=== PATIENT | female | born 1995 | race Caucasian/White ===

== ENCOUNTER 2016-09-21 19:26 | Emergency (ER) | payer OTHER ==
[2016-09-21] MEDS ORDERED: SODIUM CHLORIDE 0.9% 500 ML IV STA (20:32)
--- NOTE | 2016-09-21 20:32 | ED ---
General Adult HPI - General Chief complaint: Abdominal Pain Stated complaint: Stomach Pain Time Seen by Provider: 09/21/16 20:02 Source: patient, RN notes reviewed Mode of arrival: ambulatory Limitations: no limitations - History of Present Illness Initial comments: This is a 21-year-old female presents with right-sided abdominal pain 1 hour. Patient's dates the pain is intermittent and sharp. Nothing makes the pain better or worse. Patient states she took an ibuprofen and this helped. Patient denies any lower abdominal pain, cramping, vaginal bleeding or vaginal discharge. Patient denies any constipation, diarrhea, vomiting or nausea. Patient states she had bowel movement yesterday and this was normal. Patient denies any hematochezia. Patient denies any frequency of urination or dysuria but states her urine has a foul odor. Patient denies any fever/chills, cough, congestion headache. Patient is unsure if she could be . Patient states she has irregular menstrual cycles. Patient has a history of cholecystectomy approximately one year ago. Patient has never had a pain like this before. Patient denies any recent shortness breath, chest pain, back pain , numbness, tingling, hematuria, or visual changes, or any other complaints. - Related Data Previous Rx's Medication Instructions Recorded Azithromycin [Zithromax Tri-Sameer] 500 mg PO DAILY #3 tab 04/09/16 Allergies Allergy/AdvReac Type Severity Reaction Status Date / Time No Known Allergies Allergy Verified 04/09/16 12:20 Review of Systems ROS Statement: Those systems with pertinent positive or pertinent negative responses have been documented in the HPI. ROS Other: All systems not noted in ROS Statement are negative. Past Medical History Past Medical History: GERD/Reflux Additional Past Medical History / Comment(s): HEART MURMUR CHILD. History of Any Multi-Drug Resistant Organisms: MRSA Date of last positivie culture/infection: 2008 MDRO Source:: axilla Past Surgical History: Cholecystectomy Past Anesthesia/Blood Transfusion Reactions: No Reported Reaction Past Psychological History: Bipolar Additional Psychological History / Comment(s): NO CURRENT PROB. Smoking Status: Never smoker Past Alcohol Use History: None Reported Past Drug Use History: None Reported - Past Family History Mother Family Medical History: No Reported History General Exam - General Exam Comments Initial Comments: General: The patient is awake and alert, in no distress, and does not appear acutely ill. Eye: Pupils are equal, round and reactive to light, extra-ocular movements are intact. No nystagmus. There is normal conjunctiva bilaterally. No signs of icterus. Ears: TMs pink and pearly with intact cone of light bilaterally. Normal external ear canals Nose: Nasal turbinates pink and moist Mouth and throat: There are moist mucous membranes and no oral lesions. Neck: The neck is supple, there is no tenderness or JVD. Cardiovascular: There is a regular rate and rhythm. No murmur, rub or gallop is appreciated. Respiratory: Lungs are clear to auscultation, respirations are non-labored, breath sounds are equal. No wheezes, stridor, rales, or rhonchi. Gastrointestinal: There is tenderness to palpation of the right upper quadrant. Soft, non-distended, abdomen without masses or organomegaly noted. There is no rebound or guarding present. No CVA tenderness. Bowel sounds are unremarkable. Musculoskeletal: Normal ROM, no tenderness. Strength 5/5. Sensation intact. Radial Pulses equal bilaterally 2+. Neurological: A&O x 3. CN II-XII intact, There are no obvious motor or sensory deficits. Coordination appears grossly intact. Speech is normal. Skin: Skin is warm and dry and no rashes or lesions are noted. Psychiatric: Cooperative, appropriate mood & affect, normal judgment. Limitations: no limitations Course Vital Signs 09/21/16 09/21/16 20:02 20:52 Temperature 98.0 F 97.7 F Pulse Rate 93 87 Respiratory 20 16 Rate Blood Pressure 140/79 126/63 O2 Sat by Pulse 97 100 Oximetry Medical Decision Making - Medical Decision Making Is a 21-year-old female presents abdominal pain 1 hour. On physical exam patient is afebrile in the EC. There is tenderness to palpation of the right upper quadrant. Soft, non-distended, abdomen without masses or organomegaly noted. There is no rebound or guarding present. No CVA tenderness. Bowel sounds are unremarkable. Patient has a history of cholecystectomy. A UA was done and is negative for UTI. Basic labs were drawn and reviewed and are within normal limits. Abdominal x-ray was done and reviewed showing: Overall nonobstructive bowel gas pattern. Gas and fecal material is seen and nondistended colon and rectum. Reported by Dr. Colon. I discussed the results with patient. I discussed that patient needs to have a bowel movement. I discussed [id number] stool softeners, increase fluid intake and increase fiber in the diet. I discussed return parameters.Discussed that patient should follow up with PCP in one to 2 days or return to the EC for any worsening symptoms or for any further concerns. Patient was receptive to this plan and patient will be discharged home. I discussed this case with attending physician Dr. Edward who agrees the plan as stated above. - Lab Data Result diagrams: 09/21/16 20:45 09/21/16 20:45 Lab Results 09/21/16 09/21/16 09/21/16 Range/Units 20:45 20:45 20:45 WBC 5.7 (3.8-10.6) k/uL RBC 4.52 (3.80-5.40) m/uL Hgb 13.5 (11.4-16.0) gm/dL Hct 40.9 (34.0-46.0) % MCV 90.4 (80.0-100.0) fL MCH 29.9 (25.0-35.0) pg MCHC 33.1 (31.0-37.0) g/dL RDW 13.0 (11.5-15.5) % Plt Count 274 (150-450) k/uL Neutrophils % 47 % Lymphocytes % 41 % Monocytes % 6 % Eosinophils % 2 % Basophils % 1 % Neutrophils # 2.7 (1.3-7.7) k/uL Lymphocytes # 2.3 (1.0-4.8) k/uL Monocytes # 0.3 (0-1.0) k/uL Eosinophils # 0.1 (0-0.7) k/uL Basophils # 0.0 (0-0.2) k/uL PT (9.0-12.0) sec INR (<1.1) APTT (22.0-30.0) sec Sodium 141 (137-145) mmol/L Potassium 3.9 (3.5-5.1) mmol/L Chloride 106 (98-107) mmol/L Carbon Dioxide 25 (22-30) mmol/L Anion Gap 10 mmol/L BUN 11 (7-17) mg/dL Creatinine 0.70 (0.52-1.04) mg/dL Est GFR (MDRD) Af Amer >60 (>60 ml/min/1.73 sqM) Est GFR (MDRD) Non-Af >60 (>60 ml/min/1.73 sqM) Glucose 96 (74-99) mg/dL Calcium 9.3 (8.4-10.2) mg/dL Total Bilirubin 0.4 (0.2-1.3) mg/dL AST 24 (14-36) U/L ALT 39 (9-52) U/L Alkaline Phosphatase 58 (38-126) U/L Total Protein 6.3 (6.3-8.2) g/dL Albumin 3.8 (3.5-5.0) g/dL Amylase 32 (30-110) U/L Lipase 79 (23-300) U/L Urine Color Yellow Urine Appearance Turbid H (Clear) Urine pH 5.5 (5.0-8.0) Ur Specific [place] 1.015 (1.001-1.035) Urine Protein Trace H (Negative) Urine Glucose (UA) Negative (Negative) Urine Ketones Negative (Negative) Urine Blood Trace H (Negative) Urine Nitrate Negative (Negative) Urine Bilirubin Negative (Negative) Urine Urobilinogen <2.0 (<2.0) mg/dL Ur Leukocyte Esterase Small H (Negative) Urine RBC 1 (0-5) /hpf Urine WBC 16 H (0-5) /hpf Ur Squamous Epith Cells 29 H (0-4) /hpf Urine Bacteria Moderate H (None) /hpf Urine Mucus Moderate H (None) /hpf Urine HCG, Qual (Not Detectd) 09/21/16 09/21/16 Range/Units 20:45 20:45 WBC (3.8-10.6) k/uL RBC (3.80-5.40) m/uL Hgb (11.4-16.0) gm/dL Hct (34.0-46.0) % MCV (80.0-100.0) fL MCH (25.0-35.0) pg MCHC (31.0-37.0) g/dL RDW (11.5-15.5) % Plt Count (150-450) k/uL Neutrophils % % Lymphocytes % % Monocytes % % Eosinophils % % Basophils % % Neutrophils # (1.3-7.7) k/uL Lymphocytes # (1.0-4.8) k/uL Monocytes # (0-1.0) k/uL Eosinophils # (0-0.7) k/uL Basophils # (0-0.2) k/uL PT 10.3 (9.0-12.0) sec INR 1.0 (<1.1) APTT 24.8 (22.0-30.0) sec Sodium (137-145) mmol/L Potassium (3.5-5.1) mmol/L Chloride (98-107) mmol/L Carbon Dioxide (22-30) mmol/L Anion Gap mmol/L BUN (7-17) mg/dL Creatinine (0.52-1.04) mg/dL Est GFR (MDRD) Af Amer (>60 ml/min/1.73 sqM) Est GFR (MDRD) Non-Af (>60 ml/min/1.73 sqM) Glucose (74-99) mg/dL Calcium (8.4-10.2) mg/dL Total Bilirubin (0.2-1.3) mg/dL AST (14-36) U/L ALT (9-52) U/L Alkaline Phosphatase (38-126) U/L Total Protein (6.3-8.2) g/dL Albumin (3.5-5.0) g/dL Amylase (30-110) U/L Lipase (23-300) U/L Urine Color Urine Appearance (Clear) Urine pH (5.0-8.0) Ur Specific [place] (1.001-1.035) Urine Protein (Negative) Urine Glucose (UA) (Negative) Urine Ketones (Negative) Urine Blood (Negative) Urine Nitrate (Negative) Urine Bilirubin (Negative) Urine Urobilinogen (<2.0) mg/dL Ur Leukocyte Esterase (Negative) Urine RBC (0-5) /hpf Urine WBC (0-5) /hpf Ur Squamous Epith Cells (0-4) /hpf Urine Bacteria (None) /hpf Urine Mucus (None) /hpf Urine HCG, Qual Not Detected (Not Detectd) Disposition Clinical Impression: Constipation Disposition: HOME SELF-CARE Condition: Good Instructions: Constipation (ED) Additional Instructions: Please increase fiber in diet, may use [id number] stool softeners. Please increase fluid intake. Please follow-up with family doctor in the next 2 days of symptoms have not improved. Please return to emergency room if the symptoms increase or worsen or for any other concerns. Time of Disposition: 21:48
[2016-09-21 20:53] VITALS: RESP 16
[2016-09-21 21:05] LABS: Basophils % (A) 1 %; CH 30.4; CHCM 33.8; Eosinophils # (A) 0.1 k/uL (0-0.7); Eosinophils % (A) 2 %; HCT 40.9 % (34.0-46.0); HDW 2.64; HGB 13.5 gm/dL (11.4-16.0); Luc # (Auto) 0.18; Luc % (Auto) 3; Lymphocytes # (A) 2.3 k/uL (1.0-4.8); Lymphocytes % (A) 41 %; MCH 29.9 pg (25.0-35.0); MCHC 33.1 g/dL (31.0-37.0); MCV 90.4 fL (80.0-100.0); Monocytes # (A) 0.3 k/uL (0-1.0); Monocytes % (A) 6 %; Neutrophils # (A) 2.7 k/uL (1.3-7.7); Neutrophils % (A) 47 %; RBC 4.52 m/uL (3.80-5.40); WBC 5.7 k/uL (3.8-10.6); WBC (Perox) 5.67
[2016-09-21 21:09] LABS: Appearance,Urine Turbid (Clear); Bacteria,Urine Moderate /hpf; Bilirubin,Urine Negative (Negative); Glucose,Urine (UA) Negative (Negative); Ketones,Urine Negative (Negative); Leukocyte Esterase,Urine Small (Negative); Mucus,Urine Moderate /hpf; Nitrite,Urine Negative (Negative); PH, Urine 5.5 (5.0-8.0); Particle Count 56654; Protein,Urine Trace (Negative); RBC,Urine 1 /hpf (0-5); Specific Gravity,Urine 1.015 (1.001-1.035); Squamous Epithelial Cell,Urine 29 /hpf (0-4); UA Billing (MACRO vs. MICRO) MICRO; Urobilinogen,Urine <2.0 mg/dL (<2.0); WBC,Urine 16 /hpf (0-5)
[2016-09-21 21:13] LABS: Partial Thromboplastin Time 24.8 sec (22.0-30.0); Prothrombin Time 10.3 sec (9.0-12.0)
[2016-09-21 21:19] LABS: ALT 39 U/L (9-52); AST 24 U/L (14-36); Alkaline Phosphatase 58 U/L (38-126); Amylase 32 U/L (30-110); Anion Gap 10 mmol/L; Blood Urea Nitrogen 11 mg/dL (7-17); Calcium 9.3 mg/dL (8.4-10.2); Carbon Dioxide 25 mmol/L (22-30); Chloride 106 mmol/L (98-107); Glucose 96 mg/dL (74-99); Non-African American GFR(MDRD) >60 (>60 ml/min/1.73 sqM); Potassium 3.9 mmol/L (3.5-5.1); Sodium 141 mmol/L (137-145); Total Bilirubin 0.4 mg/dL (0.2-1.3); Total Protein 6.3 g/dL (6.3-8.2)
--- NOTE | 2016-09-21 21:37 | XR ---
EXAMINATION TYPE: XR abdomen 2V DATE OF EXAM: 09/21/2016 9:31 PM CLINICAL HISTORY: Abdominal pain for one hour. History of GERD. TECHNIQUE: Supine and upright views of the abdomen are obtained. COMPARISON: Abdominal x-ray December 16, 2015 FINDINGS: Scattered gas is seen in non-distended small bowel loops. Gas and fecal material is seen in non-distended colon and rectum. There is no visceromegaly, pneumoperitoneum, or abnormal calcifi cation appreciated. The lung bases are clear and the osseous structures are intact. IMPRESSION: Overall nonobstructive bowel gas pattern.
[2016-09-21 22:01] VITALS: BP 117/68; PULSE 73; TEMP 98
== END 2016-09-21 22:00 | disposition home or self-care (01) ==
LOC: EC 19:26
DX: K59.00 Constipation, unspecified (principal); Z90.49 Acquired absence of other specified parts of digestive tract; R10.811 Right upper quadrant abdominal tenderness
CPT/HCPCS: 36415; 74020; 80053; 81001; 81025; 82150; 83690; 85025; 85610; 85730; 87077; 87086; 87186; 96360; 99284

== ENCOUNTER 2016-11-14 05:47 | Emergency (ER) | payer OTHER ==
[2016-11-14 05:53] VITALS: RESP 18
[2016-11-14] MEDS ORDERED: MORPHINE SULFATE 4 MG/ML SYRINGE IM STA (06:10)
[2016-11-14] MEDS ORDERED: KETOROLAC 30 MG/ML 1 ML VIAL IM STA (06:10)
--- NOTE | 2016-11-14 06:23 | ED ---
Neck Injury/Pain HPI - General Chief Complaint: Neck Pain/Injury Stated Complaint: fall,neck pain Time Seen by Provider: 11/14/16 06:02 Mode of arrival: ambulatory Limitations: no limitations - History of Present Illness Initial Comments: This is a 21-year-old female who presents emergency department for neck pain. She states that yesterday she fell down approximately 5-6 stairs and injured her neck. She was able to get up and having right afterwards and went to bed however when she woke up this morning she was in a lot of pain and could not move her neck. She denies any loss of consciousness. She does state that she hit her head however has no lacerations or bruises. She denies any other injuries. No numbness, [place], weakness in her extremities. No other complaints. - Related Data Home Medications Medication Instructions Recorded Confirmed Aspirin 325 mg PO Q72H 11/14/16 11/14/16 Phentermine HCl [Adipex-P] 37.5 mg PO QAM 11/14/16 11/14/16 Previous Rx's Medication Instructions Recorded HYDROcodone/APAP 5-325MG [[place] 1 tab PO Q6HR PRN #15 tab 11/14/16 5-325] Methocarbamol [Robaxin] 750 mg PO QID PRN #15 tab 11/14/16 Allergies Allergy/AdvReac Type Severity Reaction Status Date / Time No Known Allergies Allergy Verified 11/14/16 07:29 Review of Systems ROS Statement: Those systems with pertinent positive or pertinent negative responses have been documented in the HPI. ROS Other: All systems not noted in ROS Statement are negative. Past Medical History Past Medical History: GERD/Reflux Additional Past Medical History / Comment(s): HEART MURMUR CHILD. History of Any Multi-Drug Resistant Organisms: MRSA Date of last positivie culture/infection: 2008 MDRO Source:: axilla Past Surgical History: Cholecystectomy Past Anesthesia/Blood Transfusion Reactions: No Reported Reaction Past Psychological History: Bipolar Additional Psychological History / Comment(s): NO CURRENT PROB. Smoking Status: Never smoker Past Alcohol Use History: None Reported Past Drug Use History: None Reported - Past Family History Mother Family Medical History: No Reported History General Exam - General Exam Comments Initial Comments: Constitutional: Awake alert Appears comfortable Head: Normocephalic atraumatic Eyes: no conjunctival injection No scleral icterus EOMI Neck: No JVD entered a palpation along the midline spine and bilateral paraspinal muscles Heart: Regular rate rhythm normal S1-S2 no murmurs Lungs: Clear to auscultation bilaterally No wheezing No rales Abdomen: Soft nondistended nontender Extremities: Non edematous DP pulses intact Radial pulses intact Neuro: A&Ox3 nerves II through XII are grossly intact, 5 out of 5 strength in upper and lower extremities bilaterally, sensation intact to light touch in all extremities, normal gait Psych: Appropriate mood and affect Limitations: no limitations Course Vital Signs 11/14/16 05:49 Temperature 97.1 F L Pulse Rate 87 Respiratory 18 Rate Blood Pressure 117/78 O2 Sat by Pulse 99 Oximetry Medical Decision Making - Medical Decision Making Is a 21-year-old female presents emergency department for neck pain after a fall. Computed tomography scan was reviewed and unremarkable. The patient felt improved after medications. We'll send her home with Robaxin [place]. She can return the emergency room if she has worsening or changing symptoms. All questions were answered. - Lab Data Lab Results 11/14/16 Range/Units 06:15 Urine HCG, Qual Not Detected (Not Detectd) Disposition Clinical Impression: Neck strain Disposition: HOME SELF-CARE Condition: Stable Instructions: Cervical Strain (ED) Prescriptions: HYDROcodone/APAP 5-325MG [[place] 5-325] 1 tab PO Q6HR PRN #15 tab PRN Reason: Pain Methocarbamol [Robaxin] 750 mg PO QID PRN #15 tab PRN Reason: Spasms Referrals: Jo-Ann Mortensen MD [Primary Care Provider] - 1-2 days
--- NOTE | 2016-11-14 08:00 | CT ---
EXAMINATION TYPE: CT brain cspine wo con DATE OF EXAM: 11/14/2016 7:04 AM COMPARISON: Previous study dated 02/02/2016. HISTORY: Fell down stairs and hit Rt side of head CT DLP: 1573.7 mGycm Automated exposure control for dose reduction was used. FINDINGS: Central structures are midline. There is no evidence of hydrocephalus. No acute focal lesio n, mass effect or midline shift is seen. I do not see evidence of intracranial blood. There is chronic mucoperiosteal thickening involving the ethmoid air cells. No depressed skull fractu re is seen. Visualized portions of the lungs are clear. Prevertebral soft tissues are normal. Vertebral body height and alignment are maintained. Atlantoaxial relationships are normal. There is n o significant degenerative change. No fractures are seen. IMPRESSION: 1. NORMAL CT SCAN OF THE BRAIN. 2. NORMAL CT SCAN OF THE CERVICAL SPINE. 3. CHRONIC MUCOPERIOSTEAL THICKENING INVOLVING THE ETHMOID SINUSES.
[2016-11-14 08:28] VITALS: BP 112/58; PULSE 54; TEMP 96.9
== END 2016-11-14 08:29 | disposition home or self-care (01) ==
LOC: EC 05:47
DX: S16.1XXA Strain of muscle, fascia and tendon at neck level, initial encounter (principal); Z79.82 Long term (current) use of aspirin; Z79.899 Other long term (current) drug therapy; W10.9XXA Fall (on) (from) unspecified stairs and steps, initial encounter
CPT/HCPCS: 99284; 96372 ×2; 81025; 72125; 70450; J2270; J1885

== ENCOUNTER 2016-11-30 09:45 | Emergency (ER) | payer OTHER ==
[2016-11-30 09:49] VITALS: PULSE 80; RESP 20; TEMP 98
--- NOTE | 2016-11-30 10:12 | ED ---
ENT HPI - General Chief complaint: ENT Stated complaint: EARS PLUGGED, FACE HURTS Time Seen by Provider: 11/30/16 10:02 Source: patient, RN notes reviewed Mode of arrival: ambulatory Limitations: no limitations - History of Present Illness Initial comments: Patient is a 21-year-old female presents to the emergency room for evaluation of not being able to hear. Patient states she feels like her b/l ears are plugged. Patient states she can't hear anything very well. Patient states she is having slight pain in bilateral ears. Patient states the pain started 2 days ago. Patient denies fevers or chills. Patient denies throat pain. Patient denies sinus congestion. Patient states she is having a slight headache. Patient denies taking any Tylenol or Motrin. Patient denies nausea or vomiting. - Related Data Previous Rx's Medication Instructions Recorded Amoxicillin/Potassium Clav 1 each PO Q12HR #20 tab 11/30/16 [Augmentin 875-125 Tablet] Ciprofloxacin-Dexameth [Ciprodex 4 drops BOTH EARS BID 10 Days 11/30/16 Otic Susp] Allergies Allergy/AdvReac Type Severity Reaction Status Date / Time No Known Allergies Allergy Verified 11/30/16 10:01 Review of Systems ROS Statement: Those systems with pertinent positive or pertinent negative responses have been documented in the HPI. ROS Other: All systems not noted in ROS Statement are negative. Past Medical History Past Medical History: GERD/Reflux Additional Past Medical History / Comment(s): HEART MURMUR CHILD. History of Any Multi-Drug Resistant Organisms: MRSA Date of last positivie culture/infection: 2008 MDRO Source:: axilla Past Surgical History: Cholecystectomy Past Anesthesia/Blood Transfusion Reactions: No Reported Reaction Past Psychological History: Bipolar Additional Psychological History / Comment(s): NO CURRENT PROB. Smoking Status: Never smoker Past Alcohol Use History: None Reported Past Drug Use History: None Reported - Past Family History Mother Family Medical History: No Reported History General Exam - General Exam Comments Initial Comments: Sitting in exam room, no acute distress. Limitations: no limitations General appearance: alert, in no apparent distress Head exam: Present: atraumatic, normocephalic, normal inspection Eye exam: Present: normal appearance Expanded TM/Canal exam: Cerumen Impaction: Right TM, Left TM Neck exam: Present: normal inspection Respiratory exam: Present: normal lung sounds bilaterally. Absent: respiratory distress Cardiovascular Exam: Present: regular rate, normal rhythm, normal heart sounds Extremities exam: Present: normal inspection Back exam: Present: normal inspection Neurological exam: Present: alert, oriented X3, CN II-XII intact, normal gait Psychiatric exam: Present: normal affect, normal mood Skin exam: Present: warm, dry, intact, normal color. Absent: rash Course Vital Signs 11/30/16 11/30/16 09:46 11:54 Temperature 98 F 98 F Pulse Rate 80 80 Respiratory 20 Rate Blood Pressure 140/93 138/74 O2 Sat by Pulse 99 99 Oximetry Medical Decision Making - Medical Decision Making Patient is a 21-year-old female since emergency room for evaluation of bilateral ear pain and decreased hearing. Patient did have bilateral cerumen impaction. Patient's bilateral ears were flushed. Tympanic membranes visualized. Right tympanic members slightly erythematous. Bilateral ear canals swollen and tender. Place patient on medications for otitis externa and advised her to follow-up with primary care provider. Patient states she understands everything that was discussed with her. Return parameters discussed. Case discussed Dr. Ayon. Disposition Clinical Impression: Otitis externa, Impacted ear wax Disposition: HOME SELF-CARE Condition: Good Instructions: Otitis Externa (ED), Cerumen Impaction (ED) Additional Instructions: Apply eardrops as directed. Take antibiotics as directed. Take Tylenol or Motrin as needed for pain. Please follow up with primary care provider in 1-2 days. If any new symptom arises or symptoms worsen, return to ER as soon as possible. Prescriptions: Amoxicillin/Potassium Clav [Augmentin 875-125 Tablet] 1 each PO Q12HR #20 tab Ciprofloxacin-Dexameth [Ciprodex Otic Susp] 4 drops BOTH EARS BID 10 Days Referrals: Jo-Ann Mortensen MD [Primary Care Provider] - 1-2 days Time of Disposition: 11:46
[2016-11-30 11:55] VITALS: BP 138/74
== END 2016-11-30 11:57 | disposition home or self-care (01) ==
LOC: EC 09:45
DX: H61.23 Impacted cerumen, bilateral (principal); H60.93 Unspecified otitis externa, bilateral; R51 Headache
CPT/HCPCS: 99282

== ENCOUNTER 2016-12-15 23:50 | Inpatient (IN) | payer MEDICAID, OTHER ==
[2016-12-15 23:57] VITALS: RESP 18
--- NOTE | 2016-12-16 01:58 | ED ---
Psych HPI - General Chief Complaint: Psychiatric Symptoms Stated Complaint: mental health Time Seen by Provider: 12/16/16 00:31 Source: patient, RN notes reviewed, old records reviewed Mode of arrival: ambulatory - History of Present Illness Initial Comments: This is a 21-year-old female with chief complaint of hearing voices in her head. She states that the voices are telling her to kill herself. She states that she does not feel safe to go home. She states uses her bipolar disorder. She states she's not on any medication. Patient states that she has had some thoughts of harming her ex-girlfriend. Patient denies any physical complaints. She states that she's never heard these voices before. She also reports that she has not slept in the past 3 days. - Related Data Home Medications Medication Instructions Recorded Confirmed No Known Home Medications [No 12/15/16 12/15/16 Known Home Medications] Allergies Allergy/AdvReac Type Severity Reaction Status Date / Time No Known Allergies Allergy Verified 11/30/16 10:01 Review of Systems ROS Statement: Those systems with pertinent positive or pertinent negative responses have been documented in the HPI. ROS Other: All systems not noted in ROS Statement are negative. Past Medical History Past Medical History: GERD/Reflux Additional Past Medical History / Comment(s): HEART MURMUR CHILD. History of Any Multi-Drug Resistant Organisms: MRSA Date of last positivie culture/infection: 2008 MDRO Source:: axilla Past Surgical History: Cholecystectomy Past Anesthesia/Blood Transfusion Reactions: No Reported Reaction Past Psychological History: Bipolar Additional Psychological History / Comment(s): NO CURRENT PROB. 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 No distress. Limitations: no limitations General appearance: alert, in no apparent distress Head exam: Present: atraumatic, normocephalic, normal inspection Eye exam: Present: normal appearance, PERRL, EOMI. Absent: scleral icterus, conjunctival injection, periorbital swelling ENT exam: Present: normal exam, mucous membranes moist Neck exam: Present: normal inspection. Absent: tenderness, meningismus, lymphadenopathy Respiratory exam: Present: normal lung sounds bilaterally. Absent: respiratory distress, wheezes, rales, rhonchi, stridor Cardiovascular Exam: Present: regular rate, normal rhythm, normal heart sounds. Absent: systolic murmur, diastolic murmur, rubs, gallop, clicks GI/Abdominal exam: Present: soft, normal bowel sounds. Absent: distended, tenderness, guarding, rebound, rigid Extremities exam: Present: normal inspection, full ROM, normal capillary refill. Absent: tenderness, pedal edema, joint swelling, calf tenderness Back exam: Present: normal inspection Neurological exam: Present: alert, oriented X3, CN II-XII intact Psychiatric exam: Present: anxious, homicidal ideation, suicidal ideation, other (auditory hallucinations statting to kill herself. ). Absent: normal affect, normal mood Skin exam: Present: warm, dry, intact, normal color. Absent: rash Course Vital Signs 12/15/16 12/16/16 23:54 06:13 Temperature 97.2 F L 98 F Pulse Rate 57 L 87 Respiratory 18 18 Rate Blood Pressure 121/63 144/76 O2 Sat by Pulse 99 99 Oximetry Medical Decision Making - Medical Decision Making Patient is medically clear for psych evaluation. Patient will be admitted to this hospital, pateint agrees to treatment plan and will comply. Disposition Clinical Impression: Auditory hallucination, Suicidal behavior Disposition: HOME SELF-CARE Condition: Good Time of Disposition: 06:32
[2016-12-16] MEDS ORDERED: MAG HYDROX/AL HYDROX/SIMETH 30 ML CUP PO PRN (06:58)
[2016-12-16] MEDS ORDERED: MAGNESIUM HYDROXIDE 2,400 MG/10 ML CUP PO PRN (06:58)
[2016-12-16] MEDS ORDERED: ACETAMINOPHEN TAB 325 MG TAB PO PRN (06:58)
[2016-12-16 07:04] VITALS: TEMP 98.6
--- NOTE | 2016-12-16 10:03 | P.HP ---
Psychiatric H&P - . H&P Date: 12/16/16 History & Physical: IDENTIFYING DATA: She is a 21-year-old homeless, single female who presents unit voluntarily with complaints of auditory hallucinations and suicidal ideation. HISTORY OF PRESENT ILLNESS: She complained of increasing feelings depression, thoughts of suicide and auditory hallucinations over the last 3 weeks since she lost her apartment. The auditory hallucinations take the form of a critical male voice. She hears the voice telling her that she is "worthless" and "no good for anybody." I could not determine from her description whether he experiences represent true auditory hallucinations, thought insertion or intrusive thoughts. She perseverated on a boyfriend or ex-boyfriend (she vacillated between calling him a boyfriend and ex-boyfriend). She claimed that he "only wants money" and was unwilling to help her since she lost her apartment. 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 She alleged that she missed work because of her boyfriend e.g. that he did not want her to go home or he had problems that required her presence. Since she lost her apartment, she has been living with various friends. She was quite evasive about her living situation. She also complained about her legal problems. She is on probation for a 2015 conviction of controlled substance delivery and manufacturing. In addition, she is on probation for a number of convictions in 2016 including prostitution and soliciting and computer Internet crimes, She is in violation of probation lianne urine drug screens have been positive for marijuana. She alleged that during a recent mental health court hearing she complained to Judge House that she is unable to stop using marijuana because it has therapeutic benefits. Computer Technical Support Specialist Harsh ordered her for a psychiatric evaluation and she alleged she has appointment with Dr. Lock today. She completed the [place] Depression Inventory her total score was 37 consistent with severe symptoms of depression. She identified the following symptoms as severe: Sadness, pessimism, self dislike, self criticalness, and worthlessness, irritability. She rated the following a moderate: Loss of pleasure, past failure, punishment feelings, suicidal thoughts or wishes, agitation, loss of interest, indecisiveness indecisiveness, loss of energy, changes in sleeping pattern (I sleep a lot more than usual), changes in appetite (my appetite is much less than before), and tiredness or fatigue. PAST PSYCHIATRIC HISTORY: She had one prior psychiatric hospitalization at [facility] when she was 14 years old. He admission appeared to be related to conduct problems as well as abuse of dextromethorphan. She alleged that she has been "in and out" of mental health treatment for much of her life. She is currently enrolled with [facility] and attends their [facility] program. She is not currently prescribed psychotropic medications. PAST MEDICAL HISTORY: She denied major medical illness season. ALLERGIES: NO KNOWN DRUG ALLERGIES. SUBSTANCE USE HISTORY: She denied use of drugs with the exception of marijuana. She drinks alcohol occasionally and does not like to become intoxicated. She smokes marijuana daily. She has a history of dextromethorphan use disorder. Her urine drug screen was positive only for marijuana. Her POC alcohol level was 0. FAMILY PSYCHIATRIC/SUBSTANCE USE HISTORY: Her mother had a history of substance use disorder. LEGAL HISTORY: She is currently on probation or several charges including a 2015 conviction for controlled substance delivery/manufacturing, prostitution/ accosting and soliciting, [id number] with another to commit crimes and computer using to commit a crime. She described juvenile offenses including breaking and entering. She has had 2 incarcerations; the longest was 7 months. She alleged she could not remember how many times she has been arrested. SOCIAL HISTORY: She was placed in foster care when she was a child because her mother had a substance use disorder. She lived in several foster homes. She ran away from foster care placement and eventually was placed in [facility] homes. She came of age at [facility]. She described conduct problems, truancy, and expulsions from school. She was in the 12th grade when she was convicted of home invasion and jailed for 7 months. The conviction carried a 12 month sentence but the circuit judge reduce the sentence by 5 months if she completed her GED. She had children child out of wedlock 2 years ago. The child was removed at and placed in adoption. She has a brother and sister. She is jealous that they were adopted to the same household. It appears that the family would not adopt her because of her behavioral problems. She has had an "on again off again" relationship with the same boyfriend for several years. She alleged that she began soliciting in order to provide him with money. She has been soliciting "for 3 years." She was solicited sex even when she had employment. She is currently homeless and has no income. MENTAL STATUS EXAM: She presented as a disheveled moderately obese very malodorous 21-year-old female. She made eye contact and appeared to cooperate with the interview. She had a large tattoo on her right forearm and smaller tattoos on her ankles. She had no prominent physical abnormalities. She had a blunted facial expression. She was alert and oriented to person, place and time. She showed slight psychomotor retardation but no abnormal involuntary movements. Her speech was spontaneous with normal rate, rhythm and volume. Her affect was depressed. She describes suicidal ideation and wishes. She denied homicidal ideation. She expressed depressive cognitions including hopelessness, helplessness and worthlessness. She ruminated about her psychosocial and legal problems particularly the ongoing an ambivalent relationship with her boyfriend/ex-boyfriend. She did not express ideas reference, paranoid ideation or delusional thoughts. Her thinking was concrete but her associations were coherent and logical. She described "voices" that were derogatory. Based on her description I am uncertain whether the voices represent true auditory hallucinations. Global impression of intellect is average. She has limited awareness or understanding of her illness. STRENGTHS: Good physical health, involvement with community mental health. WEAKNESSES: Lack of income, lack of housing, legal problems, poor social supports. IMPRESSION: She is a 21-year-old female principle presented with depression, suicidal ideation and possible auditory hallucinations. The symptoms developed in the context of major psychosocial stressors including lack of income and lack of housing. She has a long history of conduct problems , delinquency and adult antisocial behaviors. She is currently on probation for 2 felony convictions. She has signs and symptoms of a depressive disorder. She should be treated on an inpatient basis with a combination of psychopharmacology and multimodal therapy. PRINCIPLE DIAGNOSIS: Unspecified depressive disorder, rule out major depressive disorder, cannabis use disorder, childhood onset, disorder, antisocial personal disorder, legal problems, financial problems, housing problems RECOMMENDATION: Continue inpatient hospitalization. Suicide precautions with 15 minute checks. Consult medicine for initial physical exam and medical history. Encourage attendance to personal hygiene. Begin Effexor XR 75 mg daily with titration according to clinical response and tolerance. Consider augmenting the antidepressant with a second generation antipsychotic. Social work to complete the psychosocial assessment. Contact her weapons officer informed her weapons officer hospitalization. Encourage participation in therapeutic groups and activities. Evaluate clinical status response to treatment on a daily basis. Allergies Allergy/AdvReac Type Severity Reaction Status Date / Time No Known Allergies Allergy Verified 11/30/16 10:01 Vital Signs Temp 98.6 F 12/16/16 07:02 Pulse 77 12/16/16 07:02 Resp 18 12/16/16 07:02 BP 125/79 12/16/16 07:02 Pulse Ox 99 12/16/16 06:13 Intake & Output 12/15/16 12/16/16 12/16/16 18:59 06:59 18:59 Weight 86.183 kg 91.898 kg Laboratory Last Values Urine Opiates Screen Not Detected (NotDetected) 12/16/16 06:10 Ur Oxycodone Screen Not Detected (NotDetected) 12/16/16 06:10 Urine Methadone Screen Not Detected (NotDetected) 12/16/16 06:10 Ur Propoxyphene Screen Not Detected (NotDetected) 12/16/16 06:10 Ur Barbiturates Screen Not Detected (NotDetected) 12/16/16 06:10 U Tricyclic Antidepress Not Detected (NotDetected) 12/16/16 06:10 Ur Phencyclidine Scrn Not Detected (NotDetected) 12/16/16 06:10 Ur Amphetamines Screen Not Detected (NotDetected) 12/16/16 06:10 U Methamphetamines Scrn Not Detected (NotDetected) 12/16/16 06:10 U Benzodiazepines Scrn Not Detected (NotDetected) 12/16/16 06:10 Urine Cocaine Screen Not Detected (NotDetected) 12/16/16 06:10 U Marijuana (THC) Screen Detected (NotDetected) H 12/16/16 06:10 12/16/16 08:14 12/16/16 09:28
[2016-12-16 10:06] LABS: Basophils % (A) 1 %; CH 30.6; CHCM 32.7; Eosinophils # (A) 0.2 k/uL (0-0.7); Eosinophils % (A) 3 %; HDW 2.41; HGB 13.9 gm/dL (11.4-16.0); Luc # (Auto) 0.09; Luc % (Auto) 2; Lymphocytes % (A) 31 %; MCH 30.3 pg (25.0-35.0); MCHC 32.2 g/dL (31.0-37.0); MCV 93.9 fL (80.0-100.0); Mean Platelet Volume 6.7; Monocytes # (A) 0.3 k/uL (0-1.0); Monocytes % (A) 5 %; Neutrophils # (A) 3.7 k/uL (1.3-7.7); Neutrophils % (A) 59 %; RBC 4.58 m/uL (3.80-5.40); RDW 13.2 % (11.5-15.5); WBC 6.3 k/uL (3.8-10.6); WBC (Perox) 6.58
[2016-12-16 10:25] LABS: ALT 20 U/L (9-52); AST 16 U/L (14-36); Alkaline Phosphatase 61 U/L (38-126); Anion Gap 12 mmol/L; Blood Urea Nitrogen 13 mg/dL (7-17); Calcium 9.4 mg/dL (8.4-10.2); Carbon Dioxide 21 mmol/L (22-30); Chloride 108 mmol/L (98-107); Glucose 75 mg/dL (74-99); Non-African American GFR(MDRD) >60 (>60 ml/min/1.73 sqM); Potassium 4.2 mmol/L (3.5-5.1); Sodium 141 mmol/L (137-145); Total Bilirubin 0.4 mg/dL (0.2-1.3); Total Protein 6.9 g/dL (6.3-8.2)
[2016-12-16] MEDS: LORazepam 1 MG TAB PO PRN (20:44)
[2016-12-16 20:45] VITALS: BP 130/85; PULSE 70
[2016-12-17] MEDS: LORazepam 1 MG TAB PO PRN (08:26)
[2016-12-17] MEDS ORDERED: VENLAFAXINE HCL ER 75 MG CAP PO SCH (09:00)
--- NOTE | 2016-12-17 11:13 | CONS ---
DATE OF CONSULTATION: CHIEF COMPLAINT: Hearing voices. HISTORY OF PRESENT ILLNESS: Ms. Hernandez is a 21-year-old female with known history of marijuana abuse, came to the hospital with complaints of hearing voices for the past 3 days. Patient says that the voices are telling her to kill herself. Patient says that she has bipolar disorder and currently not on medication as per the patient. Patient apparently has not been sleeping, has not slept for the last 3 weeks and has been using weed everyday. The patient does smoke weed. She also had some thoughts of harming her ex-girlfriend. Denied any complaints of chest pain, nausea, vomiting, abdominal pain. No short of breath. No fever. No chills. No recent illnesses. No sick contacts at home. REVIEW OF SYSTEMS: CONSTITUTIONAL: No fever. No chills. No weakness, malaise. RESPIRATORY: No cough or sputum production. CARDIOVASCULAR: No chest pain or short of breath. No leg swelling. ABDOMEN: No nausea, vomiting or abdominal pain. GENITOURINARY: Negative. ENDOCRINE: Negative. PSYCHIATRIC: Bipolar and delusional. SKIN: No rash or skin lesions. PAST MEDICAL HISTORY: GERD and heart murmur as a child. Past history of MRSA with skin wound when she was a child. PAST SURGICAL HISTORY: Cholecystectomy. PSYCHOSOCIAL HISTORY: Bipolar disorder, not on current medication. SOCIAL HISTORY: Patient never a smoker. The patient does smoke weed every day. Occasional alcohol use. Denied any drugs or IVDU. FAMILY HISTORY: Mother had hypertension. PHYSICAL EXAMINATION: Awake, alert, oriented x3. Appears to be in no apparent distress. VITALS: Blood pressure is 125/79, pulse is 77, respirations 18, temperature afebrile, pulse ox 99% on room air. HEENT: Atraumatic, normocephalic. Neck is supple. No JVD. CVS EXAM: No murmurs noted. No gallop. LUNGS: Bilateral air entry is present. No wheezing. No crackles. Nonlabored breathing. ABDOMEN: Soft, nontender. Bowel sounds present. STORES ASSISTANT: Awake, alert and oriented x3. No focal deficit. EXTREMITIES: No edema. Pulses palpable bilaterally. No clubbing or cyanosis. PSYCHIATRIC: Cooperative, except appears to be delusional. LABORATORY DATA: WBC 6.3, hemoglobin 13.9, platelets 296. Sodium 141, potassium 4.2, chloride 108, bicarb is 21. BUN 13, creatinine 0.71. TSH 0.572. UDS is positive for marijuana. IMPRESSION: 1. Acute auditory hallucinations with suicidal and homicidal ideation. 2. Bipolar disorder. 3. Marijuana use. 4. Family history of hypertension. DISCUSSION AND PLAN: Will continue to monitor marijuana withdrawal symptoms. Continue the medications as per Psychiatry for bipolar disorder and follow up closely. Laboratory data reviewed and ( ) is controlled. Will follow closely. Further recommendations based on the clinical course. Thank you for the consultation.
--- NOTE | 2016-12-17 12:52 | P.DS ---
Providers Date of admission: 12/16/16 05:45 Attending physician: Jose Al MD Consults: 12/16/16 06:58 Consult Physician Routine Consulting Provider: Sebastian Ruvalcaba Consult Reason/Comments: H & P and medical follow up Do you want consulting provider notified?: Yes Primary care physician: Festus Brandon Charbal - Discharge Diagnosis(es) (1) Depressive disorder, not elsewhere classified Current Visit: Yes Status: Acute Priority: Low (2) Antisocial personality disorder Current Visit: Yes Status: Chronic Priority: Medium (3) Legal problem Current Visit: Yes Status: Chronic Priority: Medium (4) Financial problems Current Visit: Yes Status: Chronic Priority: Medium (5) Housing problems Current Visit: Yes Status: Acute Priority: High Hospital Course: She is a 21-year-old homeless, single female who presents unit voluntarily with complaints of auditory hallucinations and suicidal ideation. She complained of increasing feelings depression, thoughts of suicide and auditory hallucinations over the last 3 weeks since she lost her apartment. The auditory hallucinations take the form of a critical male voice. She hears the voice telling her that she is "worthless" and "no good for anybody." I could not determine from her description whether he experiences represent true auditory hallucinations, thought insertion or intrusive thoughts. She perseverated on a boyfriend or ex-boyfriend (she vacillated between calling him a boyfriend and ex-boyfriend). She claimed that he "only wants money" and was unwilling to help her since she lost her apartment. 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 She alleged that she missed work because of her boyfriend e.g. that he did not want her to go home or he had problems that required her presence. Since she lost her apartment, she has been living with various friends. She was quite evasive about her living situation. She also complained about her legal problems. She is on probation for a 2015 conviction of controlled substance delivery and manufacturing. In addition, she is on probation for a number of convictions in 2016 including prostitution and soliciting and computer Internet crimes, She is in violation of probation lianne urine drug screens have been positive for marijuana. She alleged that during a recent mental health court hearing she complained to Lift Operator Harsh that she is unable to stop using marijuana because it has therapeutic benefits. Lift Operator Harsh ordered her for a psychiatric evaluation and she alleged she has appointment with Dr. Lock today. She completed the [place] Depression Inventory her total score was 37 consistent with severe symptoms of depression. She identified the following symptoms as severe: Sadness, pessimism, self dislike, self criticalness, and worthlessness, irritability. She rated the following a moderate: Loss of pleasure, past failure, punishment feelings, suicidal thoughts or wishes, agitation, loss of interest, indecisiveness indecisiveness, loss of energy, changes in sleeping pattern (I sleep a lot more than usual), changes in appetite (my appetite is much less than before), and tiredness or fatigue. She had one prior psychiatric hospitalization at [facility] when she was 14 years old. He admission appeared to be related to conduct problems as well as abuse of dextromethorphan. She alleged that she has been "in and out" of mental health treatment for much of her life. She is currently enrolled with [facility] and attends their DBT program. She is not currently prescribed psychotropic medications. She denied use of drugs with the exception of marijuana. She drinks alcohol occasionally and does not like to become intoxicated. She smokes marijuana daily. She has a history of dextromethorphan use disorder. Her urine drug screen was positive only for marijuana. Her POC alcohol level was 0. She is currently on probation or several charges including a 2015 conviction for controlled substance delivery/manufacturing, prostitution/accosting and soliciting, [id number] with another to commit crimes and computer using to commit a crime. She described juvenile offenses including breaking and entering. She has had 2 incarcerations; the longest was 7 months. She alleged she could not remember how many times she has been arrested. We admitted her to the psychiatric unit under the care of this telegraphic typewriter repairer. We provided a biopsychosocial assessment. The political consultant completed the initial physical exam and medical history diagnosed cannabis use disorder and a family history of hypertension. We started Effexor XR 75 mg daily for the treatment of her depression. She participated in therapeutic groups and activities. She did not pose a management problem or displayed episodes of behavioral dyscontrol or self-harm. On the second day of admission she requested to be discharged. She denied experiencing auditory hallucinations and alleged that her depression is "much improved". She attributed the marked improvement to improvement in her sleep. She alleged that she had not slept for several days prior to admission and believes that her depression and reported auditory hallucinations are related to her lack of sleep. production manufacturing worker arranged aftercare services through [facility]. [facility]. She stated that she is less than before and found that is a safe environment. Patient Condition at Discharge: Stable Plan - Discharge Summary New Discharge Prescriptions: Venlafaxine HCl ER [Effexor XR] 75 mg PO DAILY #30 cap Discharge Medication List Venlafaxine HCl ER [Effexor XR] 75 mg PO DAILY #30 cap 12/17/16 [Rx] Follow up Appointment(s)/Referral(s): [facility] [Outside] - 12/23/16 3:00 pm (Jo-Ann Pearl MD [Primary Care Provider] - 1 Week Discharge Disposition: HOME SELF-CARE
== END 2016-12-17 14:39 | disposition home or self-care (01) | DRG 881 ==
LOC: EC 23:50 → 3MHU 12-16 05:45
PROVIDERS: ADMIT Psychiatry & Neurology Psychiatry; ATTEND Psychiatry & Neurology Psychiatry
DX: F32.9 Major depressive disorder, single episode, unspecified (principal); R45.851 Suicidal ideations; R44.0 Auditory hallucinations; R45.850 Homicidal ideations; F60.2 Antisocial personality disorder; K21.9 Gastro-esophageal reflux disease without esophagitis; F12.10 Cannabis abuse, uncomplicated; F41.9 Anxiety disorder, unspecified; Z72.820 Sleep deprivation; Z65.3 Problems related to other legal circumstances; Z86.14 Personal history of Methicillin resistant Staphylococcus aureus infection; Z59.9 Problem related to housing and economic circumstances, unspecified; Z82.49 Family history of ischemic heart disease and other diseases of the circulatory system
CPT/HCPCS: 80053; 80306; 82075; 84443; 85025

== ENCOUNTER 2018-07-17 06:56 | Emergency (ER) | payer MEDICAID, OTHER ==
[2018-07-17 07:02] VITALS: BP 150/85; PULSE 89; RESP 16; TEMP 98.1
[2018-07-17] MEDS ORDERED: ACETAMINOPHEN TAB 500 MG TAB PO STA (07:27)
[2018-07-17] MEDS ORDERED: IBUPROFEN 600 MG TAB PO STA (07:31)
--- NOTE | 2018-07-17 07:31 | ED ---
General Adult HPI - General Chief complaint: ENT Stated complaint: right ear pain Time Seen by Provider: 07/17/18 07:20 Source: patient, RN notes reviewed Mode of arrival: ambulatory Limitations: no limitations - History of Present Illness Initial comments: Patient is a pleasant 22-year-old female presenting to the emergency department with complaints of sinus congestion and right ear pain. Patient has had Sinus congestion for the past several days. Right ear discomfort started this morning. Hearing loss. Patient did have a sore throat however that has resolved. Occasional mild cough. No dyspnea. No fevers. - Related Data Previous Rx's Medication Instructions Recorded Venlafaxine HCl ER [Effexor XR] 75 mg PO DAILY #30 cap 12/17/16 Amoxicillin 500 mg PO Q8H #30 capsule 07/17/18 Allergies Allergy/AdvReac Type Severity Reaction Status Date / Time No Known Allergies Allergy Verified 07/17/18 07:02 Review of Systems ROS Statement: Those systems with pertinent positive or pertinent negative responses have been documented in the HPI. ROS Other: All systems not noted in ROS Statement are negative. Constitutional: Denies: fever Eyes: Denies: eye pain ENT: Reports: ear pain, congestion Respiratory: Denies: cough Cardiovascular: Denies: chest pain Endocrine: Denies: fatigue Gastrointestinal: Denies: abdominal pain Genitourinary: Denies: dysuria Musculoskeletal: Denies: back pain Skin: Denies: rash Neurological: Denies: weakness Psychiatric: Denies: anxiety Past Medical History Past Medical History: GERD/Reflux Additional Past Medical History / Comment(s): HEART MURMUR CHILD. History of Any Multi-Drug Resistant Organisms: MRSA Date of last positivie culture/infection: 2008 MDRO Source:: axilla Past Surgical History: Cholecystectomy Past Anesthesia/Blood Transfusion Reactions: No Reported Reaction Past Psychological History: Bipolar Smoking Status: Never smoker Past Alcohol Use History: None Reported Past Drug Use History: None Reported - Past Family History Mother Family Medical History: No Reported History General Exam Limitations: no limitations General appearance: alert, in no apparent distress Head exam: Present: atraumatic Eye exam: Present: normal appearance, PERRL ENT exam: Present: normal oropharynx, other (Tenderness over the frontal, and maxillary sinuses. Right TM view is obscured by deep cerumen. No blood or discharge.) Neck exam: Present: normal inspection Respiratory exam: Present: normal lung sounds bilaterally Cardiovascular Exam: Present: regular rate, normal rhythm GI/Abdominal exam: Present: soft. Absent: tenderness Neurological exam: Present: alert Psychiatric exam: Present: normal affect, normal mood Skin exam: Present: normal color. Absent: rash Course Vital Signs 07/17/18 07:00 Temperature 98.1 F Pulse Rate 89 Respiratory 16 Rate Blood Pressure 150/85 O2 Sat by Pulse 98 Oximetry Disposition Clinical Impression: Sinusitis, Otalgia Disposition: HOME SELF-CARE Condition: Stable Instructions: Sinusitis (ED), Earache (ED) Additional Instructions: Please follow-up with primary care physician in the next couple days for recheck. [id number] Tylenol or Motrin as needed. Return for hearing loss , increased pain, change or worsening symptoms or other concerns. Prescriptions: Amoxicillin 500 mg PO Q8H #30 capsule Is patient prescribed a controlled substance at d/c from ED?: No Referrals: Jo-Ann Mortensen MD [Primary Care Provider] - 1-2 days Time of Disposition: 07:30
== END 2018-07-17 08:25 | disposition home or self-care (01) ==
LOC: EC 06:56
DX: J32.9 Chronic sinusitis, unspecified (principal); H92.01 Otalgia, right ear; Z86.14 Personal history of Methicillin resistant Staphylococcus aureus infection
CPT/HCPCS: 99282

== ENCOUNTER → 2019-03-25 | Outpatient (CLI) | payer OTHER ==
[~2019-03-25] MED LIST: cefTRIAXone 250 MG VIAL IM ONE; cefTRIAXone 250 MG VIAL IM STA
[2019-03-25 10:54] VITALS: BP 119/82; PULSE 62; RESP 16; TEMP 98.4
== END | disposition home or self-care (01) ==
LOC: PROCWHC3 10:22
PROVIDERS: ATTEND Obstetrics & Gynecology
DX: O98.219 Gonorrhea complicating pregnancy, unspecified trimester (principal); Z3A.00 Weeks of gestation of pregnancy not specified
CPT/HCPCS: 96372 ×2; J0696

== ENCOUNTER → 2019-07-04 | Outpatient (CLI) | payer OTHER | END | disposition home or self-care (01) | LOC: LABWHC1 13:18 | PROVIDERS: ATTEND Obstetrics & Gynecology | DX: Z34.82 Encounter for supervision of other normal pregnancy, second trimester (principal) | CPT/HCPCS: 36415; 82950 ==

== ENCOUNTER 2019-10-14 06:00 | Inpatient (IN) | payer OTHER ==
[2019-10-14] MEDS ORDERED: LIDOCAINE 0.5% (PF) 5 MG/ML (50 ML SDV) SQ PRN (06:16)
[2019-10-14] MEDS ORDERED: TERBUTALINE 1 MG/ML VIAL SQ PRN (06:16)
[2019-10-14] MEDS ORDERED: METHYLERGONOVINE 0.2 MG/ML 1 ML AMP IM PRN (06:16)
[2019-10-14] MEDS ORDERED: CARBOPROST TROMETHAMINE 250 MCG/ML 1 ML AMP IM PRN (06:16)
[2019-10-14] MEDS ORDERED: OXYTOCIN 10 UNIT/ML 1 ML VIAL IM PRN (06:16)
[2019-10-14] MEDS ORDERED: OXYTOCIN 30 UNITS/500 ML NS 30 UNIT in SALINE 1 500ML.BAG IV SCH (06:30)
[2019-10-14] MEDS: LACTATED RINGERS 1,000 ML IV SCH ×3 (06:33→21:36)
[2019-10-14 06:40] LABS: Basophils # (A) 0.1 k/uL (0-0.2); Basophils % (A) 1 %; Eosinophils # (A) 0.2 k/uL (0-0.7); Eosinophils % (A) 2 %; HCT 41.6 % (34.0-46.0); HGB 13.4 gm/dL (11.4-16.0); Lymphocytes # (A) 1.9 k/uL (1.0-4.8); Lymphocytes % (A) 19 %; MCH 29.6 pg (25.0-35.0); MCHC 32.1 g/dL (31.0-37.0); MCV 92.1 fL (80.0-100.0); Monocytes # (A) 0.7 k/uL (0-1.0); Monocytes % (A) 7 %; Neutrophils % (A) 69 %; Platelet Count 309 k/uL (150-450); RBC 4.52 m/uL (3.80-5.40); WBC 10.2 k/uL (3.8-10.6)
[2019-10-14 07:34] LABS: Amphetamine Screen,Urine Not Detected (NotDetected); Barbiturate Screen,Urine Not Detected (NotDetected); Benzodiazepines Screen,Urine Not Detected (NotDetected); Cocaine Screen,Urine Not Detected (NotDetected); Methadone Screen, Urine Not Detected (NotDetected); Opiate Screen,Urine Not Detected (NotDetected); Oxycodone Screen, Urine Not Detected (NotDetected); Phencyclidine Screen,Urine Not Detected (NotDetected); Tricyclic Antidepressant,Urine Not Detected (NotDetected); Urn Cannabinoid Scrn Not Detected (NotDetected)
[2019-10-14] MEDS: BUTORPHANOL 1 MG/ML 1 ML VIAL IV PRN ×2 (10:21→12:23)
[2019-10-14] MEDS ORDERED: fentaNYL (PF) 50 MCG/ML 5 ML AMP ONE (13:56)
[2019-10-14] MEDS ORDERED: ROPIVACAINE 5MG/ML 20ML VIAL ONE (13:56)
[2019-10-14] MEDS ORDERED: SODIUM CHLORIDE 0.9% 100 ML BAG ONE (13:56)
[2019-10-14] MEDS ORDERED: CITRIC ACID-SODIUM CITRATE 15 ML CUP PO ONE (16:54)
[2019-10-14] MEDS ORDERED: OXYTOCIN 10 UNIT/ML 1 ML VIAL ONE (17:13)
[2019-10-14] MEDS ORDERED: MORPHINE SULFATE (PF) 0.3 MG/0.3 ML SYR ONE (17:13)
[2019-10-14] MEDS ORDERED: ePHEDrine SULFATE/0.9% NACL/PF 50 MG/5 ML SYRINGE IV ONE (17:13)
[2019-10-14] MEDS ORDERED: ceFAZolin 1,000 MG VIAL ONE (17:13)
[2019-10-14] MEDS ORDERED: KETOROLAC 30 MG/ML 1 ML VIAL ONE (17:13)
[2019-10-14] MEDS ORDERED: ONDANSETRON 4 MG/2 ML VIAL ONE (17:13)
--- NOTE | 2019-10-14 18:02 | P.HPOB ---
History of Present Illness H&P Date: 10/14/19 Chief Complaint: Induction of labor 24-year-old presents at 39 weeks and 1 day for induction of labor. Her cervix is 1-2 cm dilated, 70% effaced, and -2 station. She is eugene irregularly. heart tones are 130 with moderate variability and reactive. Review of Systems All systems: negative Constitutional: Denies chills, Denies fever Eyes: denies blurred vision, denies pain Ears, nose, mouth and throat: Denies headache, Denies sore throat Cardiovascular: Denies chest pain, Denies shortness of breath Respiratory: Denies cough Gastrointestinal: Denies abdominal pain, Denies diarrhea, Denies nausea, Denies vomiting Genitourinary: Denies dysuria, Denies hematuria Musculoskeletal: Denies myalgias Integumentary: Denies pruritus, Denies rash Neurological: Denies numbness, Denies weakness Psychiatric: Denies anxiety, Denies depression Endocrine: Denies fatigue, Denies weight change Past Medical History Past Medical History: GERD/Reflux Additional Past Medical History / Comment(s): HEART MURMUR CHILD. Obstetric history: She's had a previous , she did give her baby up for adoption, vaginal delivery 8 lbs. 10 oz. This is her second . She's had care with me since the first trimester. Blood type is A+, abs negati ve, rubella nonimmune, hepatitis B-, GBS negative. She had Trichomonas throughout the at did treat her several times. She does have a history of genital herpes but no active lesions. History of Any Multi-Drug Resistant Organisms: MRSA Date of last positivie culture/infection: 2008 MDRO Source:: axilla Past Surgical History: Cholecystectomy Past Anesthesia/Blood Transfusion Reactions: No Reported Reaction Past Psychological History: Bipolar Additional Psychological History / Comment(s): NO CURRENT PROB. Smoking Status: Never smoker Past Alcohol Use History: None Reported Past Drug Use History: Marijuana Additional Drug Use History / Comment(s): pt states quit smoking marijuana around 17 weeks - Past Family History Mother Family Medical History: No Reported History Medications and Allergies Home Medications Medication Instructions Recorded Confirmed Type No Known Home Medications 10/14/19 10/14/19 History Allergies Allergy/AdvReac Type Severity Reaction Status Date / Time No Known Allergies Allergy Verified 10/14/19 06:16 Exam Osteopathic Statement: *. No significant issues noted on an osteopathic stru ctural exam other than those noted in the History and Physical/Consult. Vital Signs Temp Pulse Resp BP Pulse Ox 10/14/19 06:16 97.3 F L 111 H 18 135/83 98 Intake and Output 10/14/19 10/14/19 10/14/19 06:59 14:59 22:59 Other: Weight 111.13 kg Heart: Regular rate and rhythm Lungs: Clear to auscultation bilaterally Abdomen: Soft, nontender Extremities: Negative Homans sign Results Result Diagrams: 10/14/19 06:07 Assessment and Plan (1) Normal labor Current Visit: Yes Status: Acute Code(s): O80 - ENCOUNTER FOR FULL-TERM UNCOMPLICATED DELIVERY; Z37.9 - OUTCOME OF DELIVERY, UNSPECIFIED SNOMED Code(s): 95214237 Plan: 1. Admit to family place 2. Induction of labor with amniotomy and Pitocin 3. Anticipate normal vaginal delivery
--- NOTE | 2019-10-14 18:07 | P.OP ---
Date of Procedure: 10/14/19 Preoperative Diagnosis: 1. at 39 weeks and 1 day 2. Failure to progress 3. Variable decelerations in the heart rate Postoperative Diagnosis: 1. at 39 weeks and 1 day 2. Failure to progress 3. Variable decelerations in the heart rate 4. ROT position of the baby Procedure(s) Performed: Primary low transverse Anesthesia: epidural Surgeon: Casandra Maldonado Pasting Machine Operator #1: Lefty Leiva Estimated Blood Loss (ml): 700 IV fluids (ml): 700 Urine output (ml): 150 Pathology: none sent Condition: stable Disposition: floor Operative Findings: Viable female, Apgars 9, 9, weight 7 lbs. 4 oz. Baby was in the ROT position. Nuchal cord 1. Normal uterus, tubes, ovaries. Description of Procedure: Patient was taken to the operating room where epidural anesthesia was found be adequate. She was prepped and draped in normal sterile fashion in dorsal supine position with a leftward tilt. Pfannenstiel skin incision was made the scalpel and carried through to the underlying layer of fascia with the scalpel. Fascia was incised in midline and carried bilaterally with the Negro scissors. The superior aspect of the fascial incision was grasped with [place] clamps elevated and the underlying rectus muscles dissected off with the Negro's. Attention was then turned to inferior aspect of same incision which in a similar fashion was grasped tented up and the underlying rectus muscles dissected off with the Negro's. The rectus muscles were the midline and the peritoneum was identified tented up and entered sharply with the scalpel. The incision was extended superiorly and inferiorly with good visualization of the bladder. The bladder blade was inserted and the vesicouterine peritoneum was incised the Metzenbaums then carried bilaterally and bladder flap created digitally. A low transverse incision was then made on the uterus with the scalpel. This was carried bilaterally and digital manner. Infant's head delivered atraumatically, nose and mouth bulb suctioned, cord clamped and cut, handed off to waiting nurses. Apgars 9,9, weight 7 lbs. 4 oz. Placenta delivered manually, intact with three-vessel cord. The uterus is exteriorized and cleared of all clots and debris. The uterine incision was closed with 0 Vicryl in a running locked fashion. Second layer of the same sutures used in imbricating fashion to obtain excellent hemostasis. Bladder flap was then reapproximated using 2-0 Vicryl in a running fashion. Both ovaries and tubes appeared normal. The uterus was placed back into the abdomen. The peritoneum was reapproximated using 2-0 Vicryl in a running fashion. The muscles were reapproximated using 2- 0 Vicryl in interrupted fashion. The fascia was reapproximated using 0 Vicryl in a running fashion. The subcutaneous tissues closed with 3-0 Vicryl running fashion. The skin was closed reggie. Patient tolerated the procedure well, sponge and instrument counts were correct times 2 and she was taken to the recovery room in stable condition.
[2019-10-14] MEDS ORDERED: diphenhydrAMINE 25 MG CAP PO PRN (18:08)
[2019-10-14] MEDS ORDERED: diphenhydrAMINE 50 MG/ML 1 ML VIAL IVP PRN ×2 (18:08)
[2019-10-14] MEDS ORDERED: diphenhydrAMINE 50 MG CAP PO PRN (18:08)
[2019-10-14] MEDS ORDERED: METOCLOPRAMIDE 5 MG/ML 2 ML VIAL IVP PRN (18:08)
[2019-10-14] MEDS ORDERED: NALOXONE 0.4 MG/ML 1 ML VIAL IV PRN (18:08)
[2019-10-14] MEDS ORDERED: ZOLPIDEM 5 MG TAB PO PRN (18:08)
[2019-10-14] MEDS ORDERED: SIMETHICONE 80 MG CHEWABLE PO PRN (18:08)
[2019-10-14] MEDS ORDERED: MEASLES-MUMPS-RUBELLA VACC/PF 12,500 UNIT/0.5 ML VIAL SQ ONE (18:08)
[2019-10-14] MEDS ORDERED: ONDANSETRON 4 MG/2 ML VIAL IVP PRN (18:08)
[2019-10-14] MEDS ORDERED: ACETAMINOPHEN TAB 325 MG TAB PO PRN (18:08)
[2019-10-14] MEDS ORDERED: LANOLIN CREAM 5 GM TUBE TOPICAL PRN (18:08)
[2019-10-14] MEDS ORDERED: OXYTOCIN 20 UNITS/1000 ML NS 1,000 ML IV SCH (18:15)
[2019-10-14] MEDS: SENNOSIDES-DOCUSATE SODIUM 1 EACH TAB PO SCH (21:27)
[2019-10-14] MEDS: KETOROLAC 30 MG/ML 1 ML VIAL IVP PRN (23:54)
[2019-10-15] MEDS: LACTATED RINGERS 1,000 ML IV SCH (05:08)
[2019-10-15] MEDS: KETOROLAC 30 MG/ML 1 ML VIAL IVP PRN ×2 (05:55→12:19)
[2019-10-15 08:18] LABS: Basophils % (A) 0 %; Eosinophils # (A) 0.2 k/uL (0-0.7); Eosinophils % (A) 1 %; HCT 34.7 % (34.0-46.0); HGB 11.5 gm/dL (11.4-16.0); Lymphocytes # (A) 1.4 k/uL (1.0-4.8); Lymphocytes % (A) 12 %; MCH 29.5 pg (25.0-35.0); MCHC 33.2 g/dL (31.0-37.0); Mean Platelet Volume 7.7; Monocytes # (A) 0.6 k/uL (0-1.0); Monocytes % (A) 5 %; Neutrophils # (A) 9.4 k/uL (1.3-7.7); Neutrophils % (A) 80 %; Platelet Count 263 k/uL (150-450); RDW 13.1 % (11.5-15.5); WBC 11.8 k/uL (3.8-10.6)
--- NOTE | 2019-10-15 09:51 | P.PNOBGPC ---
Subjective - Subjective Principal diagnosis: S/P 1*LTCS POD #1 Interval history: Patient seen and examined. Denies nausea, vomiting, chest pain, shortness of breath or calf pain. We had a pavel discussion about what to expect with her pain control considering she had major surgery yesterday. Patient reports: Reports appetite normal, Reports voiding normally, Reports pain well controlled, Reports ambulating normally [place]: doing well Objective - Vital Signs Latest vital signs: Vital Signs Temp Pulse Resp BP Pulse Ox 10/15/19 04:00 98.3 F 103 H 18 128/68 98 10/15/19 00:00 98.5 F 83 12 128/65 96 10/14/19 20:00 99.1 F 84 16 130/76 98 10/14/19 19:30 98.7 F 89 16 123/67 97 10/14/19 19:06 85 16 125/68 10/14/19 18:51 82 16 112/57 10/14/19 18:38 77 16 108/55 100 10/14/19 18:25 82 16 100/50 98 10/14/19 18:10 97.7 F 83 16 102/55 99 Intake and Output 10/14/19 10/15/19 10/15/19 22:59 06:59 14:59 Output Total 1750 600 Balance -1750 -600 Output: Urine 750 600 Uretheral (Tinsley) 200 Estimated Blood Loss 1000 - Exam Lungs: bilateral: normal Chest: Normal S1, Normal S2 Extremities: Present: normal Abdomen: Present: normal appearance, soft. Absent: distention, tenderness Incision: Present: normal, dry, intact Uterus: Present: normal, firm - Labs Labs: Abnormal Lab Results - Last 24 Hours (Table) 10/15/19 Range/Units 07:50 WBC 11.8 H (3.8-10.6) k/uL Neutrophils # 9.4 H (1.3-7.7) k/uL Assessment and Plan (1) Normal labor Current Visit: Yes Status: Resolved Code(s): O80 - ENCOUNTER FOR FULL-TERM UNCOMPLICATED DELIVERY; Z37.9 - OUTCOME OF DELIVERY, UNSPECIFIED SNOMED Code(s): 74079509 (2) Status post primary low transverse section Current Visit: Yes Status: Acute Code(s): Z98.891 - HISTORY OF UTERINE SCAR FROM PREVIOUS SURGERY SNOMED Code(s): 197121996 Plan: 1. Increase ambulation 2. Pain control 3. Regular diet
[2019-10-15] MEDS: SENNOSIDES-DOCUSATE SODIUM 1 EACH TAB PO SCH ×2 (12:19→19:43)
[2019-10-15] MEDS: HYDROcodone/APAP 7.5-325MG 1 EACH TAB PO PRN (16:41)
[2019-10-15] MEDS: IBUPROFEN 600 MG TAB PO PRN (19:43)
[2019-10-16] MEDS: HYDROcodone/APAP 7.5-325MG 1 EACH TAB PO PRN ×2 (00:24→09:06)
[2019-10-16] MEDS: IBUPROFEN 600 MG TAB PO PRN (05:35)
--- NOTE | 2019-10-16 06:51 | P.DS ---
Providers Date of admission: 10/14/19 06:00 Expected date of discharge: 10/16/19 Attending physician: Casandra Maldonado Primary care physician: Stated None - Discharge Diagnosis(es) (1) Normal labor Current Visit: Yes Status: Resolved (2) Status post primary low transverse section Current Visit: Yes Status: Acute Hospital Course: Patient presented for induction of labor. She underwent a primary low transverse for failure to progress and variables in the heart rate. course was uncomplicated. Her pain is controlled with Motrin and [place]. She'll be discharged home day #2 in stable condition to follow-up with me in one week. Plan - Discharge Summary New Discharge Prescriptions: New Ibuprofen [Motrin] 600 mg PO Q6HR PRN #30 tab PRN Reason: Mild Pain Or Fever >= 100.5 HYDROcodone/APAP 7.5-325MG [[place] 7.5-325] 1 each PO Q6H PRN #12 tab PRN Reason: Severe Pain Discharge Medication List HYDROcodone/APAP 7.5-325MG [[place] 7.5-325] 1 each PO Q6H PRN #12 tab 10/16/19 [Rx] Ibuprofen [Motrin] 600 mg PO Q6HR PRN #30 tab 10/16/19 [Rx] Follow up Appointment(s)/Referral(s): Casandra Maldonado DO [Doctor of Osteopathic Medicine] - 1 Week Discharge Disposition: HOME SELF-CARE
[2019-10-16 09:05] VITALS: BP 140/74; PULSE 96; RESP 20; TEMP 97.7
[2019-10-16] MEDS: SENNOSIDES-DOCUSATE SODIUM 1 EACH TAB PO SCH (09:06)
== END 2019-10-16 11:50 | disposition home or self-care (01) | DRG 787 ==
LOC: 4FBP 06:00
PROVIDERS: ADMIT Obstetrics & Gynecology; ATTEND Obstetrics & Gynecology
PROC: 3E033VJ Introduction of Other Hormone into Peripheral Vein, Percutaneous Approach (ICD-10-PCS; principal; 2019-10-14 17:00)
PROC: 10D00Z1 Extraction of Products of Conception, Low, Open Approach (ICD-10-PCS; principal; 2019-10-14 17:00)
PROC: 10907ZC Drainage of Amniotic Fluid, Therapeutic from Products of Conception, Via Natural or Artificial Opening (ICD-10-PCS; principal; 2019-10-14 17:00)
DX: O76 Abnormality in fetal heart rate and rhythm complicating labor and delivery (principal); O98.32 Other infections with a predominantly sexual mode of transmission complicating childbirth; O69.81X0 Labor and delivery complicated by cord around neck, without compression, not applicable or unspecified; O62.2 Other uterine inertia; A60.00 Herpesviral infection of urogenital system, unspecified; Z37.0 Single live birth; Z3A.39 39 weeks gestation of pregnancy; Z86.14 Personal history of Methicillin resistant Staphylococcus aureus infection; Z90.49 Acquired absence of other specified parts of digestive tract
CPT/HCPCS: 80306; 85025; 86850; 86900; 86901

== ENCOUNTER → 2020-08-01 | Outpatient (CLI) | payer OTHER ==
[2020-08-01 11:39] LABS: HCT 34.2 % (34.0-46.0); HGB 11.6 gm/dL (11.4-16.0); MCHC 33.9 g/dL (31.0-37.0); MCV 91.3 fL (80.0-100.0); Mean Platelet Volume 7.2; Platelet Count 283 k/uL (150-450); RBC 3.75 m/uL (3.80-5.40); RDW 13.8 % (11.5-15.5); WBC 10.2 k/uL (3.8-10.6)
== END | disposition home or self-care (01) ==
LOC: LABWHC1 10:12
PROVIDERS: ATTEND Obstetrics & Gynecology
DX: Z34.82 Encounter for supervision of other normal pregnancy, second trimester (principal)
CPT/HCPCS: 36415; 82950; 85027

== ENCOUNTER 2020-09-30 07:34 | Emergency (ER) | payer OTHER ==
[2020-09-30 07:38] VITALS: BP 125/74; PULSE 110; RESP 20; TEMP 97.9
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
--- NOTE | 2020-09-30 08:08 | XR ---
EXAMINATION TYPE: XR pelvis AP view DATE OF EXAM: 09/30/2020 CLINICAL HISTORY: Injury with pain. TECHNIQUE: 2 portable AP views of the pelvis are obtained. COMPARISON: None. FINDINGS: Suboptimal due to underpenetration along with body habitus and overlying ossified ca lvarium. Incomplete visualization of the left inferior pelvic ramus noted. There is no acute displace d fracture clearly evident in the pelvis. The hip and sacroiliac joints appear symmetric and are tho ught within normal limits. Widening of pubic symphysis likely corresponds to progressing third trimes ter gestation. IMPRESSION: There is no displaced fracture clearly evident in the pelvis.
== END 2020-09-30 08:40 | disposition home or self-care (01) ==
LOC: EC 07:34
DX: O26.893 Other specified pregnancy related conditions, third trimester (principal); R10.2 Pelvic and perineal pain; O99.613 Diseases of the digestive system complicating pregnancy, third trimester; K21.9 Gastro-esophageal reflux disease without esophagitis; Z3A.34 34 weeks gestation of pregnancy; W19.XXXA Unspecified fall, initial encounter
CPT/HCPCS: 72170; 99284

== ENCOUNTER 2020-09-30 08:45 | Observation (INO) | payer OTHER ==
[2020-09-30 09:35] VITALS: RESP 18
--- NOTE | 2020-09-30 09:42 | P.HPOB ---
History of Present Illness H&P Date: 09/30/20 Chief Complaint: fall 25 year old presents at 33 weeks 4 days after a fall at 3am. She fell in the bathroom after getting her foot caught on something and did "the splits". She went back to sleep but then when she woke it hurt a lot worse and she came to the hospital. She was seen in ER where they did an x-ray to make sure she did not break her pelvis then sent her up to triage. Both babies have category 1 heart tones now. She is eugene every 5-10 minutes. No bleeding or leaking of fluid. I will keep her for 24 hours since she fell with twins and is eugene. Review of Systems All systems: negative Constitutional: Denies chills, Denies fever Eyes: denies blurred vision, denies pain Ears, nose, mouth and throat: Denies headache, Denies sore throat Cardiovascular: Denies chest pain, Denies shortness of breath Respiratory: Denies cough Gastrointestinal: Denies abdominal pain, Denies diarrhea, Denies nausea, Denies vomiting Genitourinary: Reports pelvic pain, Reports , Denies dysuria, Denies hematuria Musculoskeletal: Denies myalgias Integumentary: Denies pruritus, Denies rash Neurological: Denies numbness, Denies weakness Psychiatric: Denies anxiety, Denies depression Endocrine: Denies fatigue, Denies weight change Past Medical History Past Medical History: GERD/Reflux Additional Past Medical History / Comment(s): HEART MURMUR CHILD. Obstetric history: She has had 1 previous vagina delivery and one . (first baby was given up for adoption). This is her third . She's had care with me since the first trimester and is with di/di twins. She is being followed by [facility] as well. Blood type is A+. History of Any Multi-Drug Resistant Organisms: MRSA Date of last positivie culture/infection: 2008 MDRO Source:: axilla Past Surgical History: Cholecystectomy Past Anesthesia/Blood Transfusion Reactions: No Reported Reaction Smoking Status: Never smoker - Past Family History Mother Family Medical History: No Reported History Medications and Allergies Home Medications Medication Instructions Recorded Confirmed Type Pnv No.95/Ferrous Fum/Folic AC 1 each PO DAILY #30 tablet 03/25/20 09/30/20 Rx [ Multivitamin Tablet] Allergies Allergy/AdvReac Type Severity Reaction Status Date / Time No Known Allergies Allergy Verified 09/30/20 09:02 Exam Osteopathic Statement: *. No significant issues noted on an osteopathic structural exam other than those noted in the History and Physical/Consult. Intake and Output 09/29/20 09/30/20 09/30/20 22:59 06:59 14:59 Other: Weight 117.934 kg HEart: RRR Lungs: CTAB Abdomen: soft, nontender-the tenderness is over the pubic bone area Extremeties: eder vazquez's Assessment and Plan (1) Dichorionic diamniotic twin in third trimester Current Visit: Yes Status: Acute Code(s): O30.043 - TWIN , DICHORIONIC/DIAMNIOTIC, THIRD TRIMESTER SNOMED Code(s): 133617127 (2) Fall at home Current Visit: Yes Status: Acute Code(s): W19.XXXA - UNSPECIFIED FALL, INITIAL ENCOUNTER; Y92.009 - UNSP PLACE IN [facility]SP [facility] SNOMED Code(s): 98466571 Plan: 1. NST q shift 2. continuous toco 3. monitor for signs of abruption-discussed this with patient and why she is staying for observation. 4. tylenol and ice packs for her pain 5. reg diet
[2020-09-30] MEDS: ACETAMINOPHEN TAB 325 MG TAB PO PRN ×2 (10:10→19:12)
[2020-10-01 00:21] VITALS: BP 117/55; PULSE 90; TEMP 97.6
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
--- NOTE | 2020-10-01 07:56 | P.DS ---
Providers Date of admission: 09/30/20 09:23 Expected date of discharge: 10/01/20 Attending physician: Casandra Maldonado Primary care physician: Stated None - Discharge Diagnosis(es) (1) Dichorionic diamniotic twin in third trimester Current Visit: Yes Status: Acute (2) Fall at home Current Visit: Yes Status: Acute Hospital Course: Pt presented with twin gestation at 33 weeks after a fall in her bathroom. She was having irregular contractions when she arrived. No bleeding or lof. Babies were moving and both had category 1 FHT tracing. I kept her under observation for 24 hours from the fall per ACOG guidelines. She is no longer eugene. NSTs of babies both reactive and still category 1. She will be discharged home today to f/u with both me and MFM on -she will have BPPs on . Plan - Discharge Summary New Discharge Prescriptions: No Action Pnv No.95/Ferrous Fum/Folic AC [ Multivitamin Tablet] 1 each PO DAILY #30 tablet Discharge Medication List Pnv No.95/Ferrous Fum/Folic AC [ Multivitamin Tablet] 1 each PO DAILY #30 tablet 03/25/20 [Rx] Follow up Appointment(s)/Referral(s): Casandra Maldonado DO [Doctor of Osteopathic Medicine] - 3 Days Discharge Disposition: HOME SELF-CARE
== END 2020-10-01 08:15 | disposition home or self-care (01) ==
LOC: FBPOP 08:45 → 4FBP 09:23
PROVIDERS: ADMIT Obstetrics & Gynecology; ATTEND Obstetrics & Gynecology
DX: O26.893 Other specified pregnancy related conditions, third trimester (principal); W01.0XXA Fall on same level from slipping, tripping and stumbling without subsequent striking against object, initial encounter; Y92.002 Bathroom of unspecified non-institutional (private) residence as the place of occurrence of the external cause; O30.043 Twin pregnancy, dichorionic/diamniotic, third trimester; Z3A.33 33 weeks gestation of pregnancy; K21.9 Gastro-esophageal reflux disease without esophagitis; Z86.14 Personal history of Methicillin resistant Staphylococcus aureus infection; Z90.49 Acquired absence of other specified parts of digestive tract
CPT/HCPCS: 59025; G0463; G0378 ×2; 99213

== ENCOUNTER 2020-10-13 09:41 | Inpatient (IN) | payer OTHER ==
[2020-10-13] MEDS ORDERED: CITRIC ACID-SODIUM CITRATE 15 ML CUP PO ONE (10:15)
[2020-10-13] MEDS: LACTATED RINGERS 1,000 ML IV ONE ×2 (10:21→10:58)
[2020-10-13 10:34] LABS: Basophils % (A) 0 %; Eosinophils # (A) 0.2 k/uL (0-0.7); Eosinophils % (A) 2 %; HCT 34.9 % (34.0-46.0); HGB 11.3 gm/dL (11.4-16.0); Lymphocytes # (A) 1.8 k/uL (1.0-4.8); Lymphocytes % (A) 18 %; MCH 28.2 pg (25.0-35.0); MCHC 32.3 g/dL (31.0-37.0); MCV 87.2 fL (80.0-100.0); Mean Platelet Volume 7.9; Monocytes # (A) 0.7 k/uL (0-1.0); Monocytes % (A) 7 %; Neutrophils # (A) 7.1 k/uL (1.3-7.7); Neutrophils % (A) 72 %; Platelet Count 325 k/uL (150-450); RDW 14.2 % (11.5-15.5); WBC 9.9 k/uL (3.8-10.6)
[2020-10-13] MEDS ORDERED: SODIUM CHLORIDE 0.9% 100 ML BAG ONE (10:53)
[2020-10-13] MEDS ORDERED: KETOROLAC 15 MG/ML 1 ML VIAL ONE (10:53)
[2020-10-13] MEDS ORDERED: ONDANSETRON 4 MG/2 ML VIAL ONE (10:53)
[2020-10-13] MEDS ORDERED: MORPHINE SULFATE (PF) 0.3 MG/0.3 ML SYR ONE (10:53)
[2020-10-13] MEDS ORDERED: ceFAZolin 1,000 MG VIAL ONE (10:53)
[2020-10-13] MEDS ORDERED: OXYTOCIN 10 UNIT/ML 1 ML VIAL ONE (10:53)
[2020-10-13] MEDS ORDERED: fentaNYL (PF) 50 MCG/ML 2 ML AMP ONE (10:53)
[2020-10-13 11:06] LABS: Appearance,Urine Clear (Clear); Bacteria,Urine Rare /hpf; Bilirubin,Urine Negative (Negative); Blood,Urine Negative (Negative); Color,Urine Yellow; Glucose,Urine (UA) Negative (Negative); Ketones,Urine Trace (Negative); Leukocyte Esterase,Urine Small (Negative); Mucus,Urine Rare /hpf; Nitrite,Urine Negative (Negative); Protein,Urine Negative (Negative); RBC,Urine 2 /hpf (0-5); Squamous Epithelial Cell,Urine <1 /hpf (0-4); Urobilinogen,Urine <2.0 mg/dL (<2.0); WBC,Urine 6 /hpf (0-5)
[2020-10-13 11:15] LABS: Creatinine,Urine Random 62.3 mg/dL; Protein/Creatinine Ratio,Urine 0.209
[2020-10-13 11:28] LABS: INR 0.9 (<1.2); Prothrombin Time 9.5 sec (9.0-12.0)
[2020-10-13] MEDS ORDERED: diphenhydrAMINE 50 MG/ML 1 ML VIAL IVP PRN (11:50)
[2020-10-13] MEDS ORDERED: diphenhydrAMINE 25 MG CAP PO PRN (11:50)
[2020-10-13] MEDS ORDERED: NALOXONE 0.4 MG/ML 1 ML VIAL IV PRN (11:50)
[2020-10-13] MEDS ORDERED: SIMETHICONE 80 MG CHEWABLE PO PRN (11:50)
[2020-10-13] MEDS ORDERED: METOCLOPRAMIDE 5 MG/ML 2 ML VIAL IVP PRN (11:50)
[2020-10-13] MEDS ORDERED: ONDANSETRON 4 MG/2 ML VIAL IVP PRN (11:50)
[2020-10-13] MEDS ORDERED: diphenhydrAMINE 50 MG CAP PO PRN (11:50)
[2020-10-13] MEDS ORDERED: MEASLES-MUMPS-RUBELLA VACC/PF 12,500 UNIT/0.5 ML VIAL SQ ONE (11:50)
--- NOTE | 2020-10-13 11:53 | P.HPOB ---
History of Present Illness H&P Date: 10/13/20 Chief Complaint: Her term: Twins: Prior section family pl eva Taveras is a 25-year-old with prior section one year ago for her last delivery. She has twin babies and had spontaneous rupture membranes approximately an hour before presenting to labor and delivery. Fluid was clear. She is noted from prior ultrasound to be transverse transverse she relates that baby A's head is on the right she is morbidly obese and it is difficult to p alpate through her subcutaneous tissues. As she is Manohar ruptured and 35 weeks 3 days gestation a repeat section with tubal ligation has been arranged. Risks/benefits/alternatives to this were reviewed with patient in detail and nursery personnel and senior accountant or notified. All the questions were answered for her. Her was, complicated by trichomonas infection early in the . She also did see maternal medicine and care was coordinated through maternal medicine to the first two thirds of the . Otherwise she makes no complaints today and she is stable. Category 1 tracings were noted on both babies she is having irregular contractions. She was dilated 2 cm 50% effaced and -3 station with transverse lie Past Medical History Past Medical History: GERD/Reflux Additional Past Medical History / Comment(s): HEART MURMUR CHILD. Obstetric history: She has had 1 previous vagina delivery and one . (first baby was given up for adoption). This is her third . She's had care with me since the first trimester and is with di/di twins. She is being followed by [facility] as well. Blood type is A+. History of Any Multi-Drug Resistant Organisms: MRSA Date of last positivie culture/infection: 2008 MDRO Source:: axilla Past Surgical History: Section, Cholecystectomy Past Anesthesia/Blood Transfusion Reactions: No Reported Reaction Past Psychological History: Bipolar Additional Psychological History / Comment(s): NO CURRENT PROB., boarderline personality disorder Smoking Status: Never smoker Past Alcohol Use History: None Reported Past Drug Use History: Marijuana Additional Drug Use History / Comment(s): pt states quit smoking marijuana around 17 weeks - Past Family History Mother Family Medical History: No Reported History Medications and Allergies Home Medications Medication Instructions Recorded Confirmed Type Pnv No.95/Ferrous Fum/Folic AC 1 each PO DAILY #30 tablet 03/25/20 10/13/20 Rx [ Multivitamin Tablet] Aspirin 81 mg PO DAILY 10/13/20 10/13/20 History Allergies Allergy/AdvReac Type Severity Reaction Status Date / Time No Known Allergies Allergy Verified 10/13/20 10:15 Exam Osteopathic Statement: *. No significant issues noted on an osteopathic structural exam other than those noted in the History and Physical/Consult. Intake and Output 10/12/20 10/13/20 10/13/20 22:59 06:59 14:59 Other: Weight 117.934 kg - OBG Physical Exam Breast: both: normal (no masses) Abdomen: bowel sounds normal, no diffuse tenderness, no bruit present, no guarding noted, no hepatomegaly, no splenomegaly, no mass Vulva: both: normal Vagina: normal moisture, no discharge Cervix: no lesion, no discharge Uterus: normal size, normal contour Adnexa: both: normal Anus/Rectum: normal perianal skin, no rectal mass, no hemorrhoids, heme negative Results Result Diagrams: 10/13/20 10:22 Abnormal Lab Results - Last 24 Hours (Table) 10/13/20 10/13/20 10/13/20 Range/Units 10:22 10:22 10:22 Hgb 11.3 L (11.4-16.0) gm/dL APTT 21.0 L (22.0-30.0) sec Lactate Dehydrogenase 300 L (313-618) U/L Urine Ketones (Negative) Ur Leukocyte Esterase (Negative) Urine WBC (0-5) /hpf Urine Bacteria (None) /hpf Urine Mucus (None) /hpf 10/13/20 Range/Units 10:45 Hgb (11.4-16.0) gm/dL APTT (22.0-30.0) sec Lactate Dehydrogenase (313-618) U/L Urine Ketones Trace H (Negative) Ur Leukocyte Esterase Small H (Negative) Urine WBC 6 H (0-5) /hpf Urine Bacteria Rare H (None) /hpf Urine Mucus Rare H (None) /hpf
--- NOTE | 2020-10-13 11:57 | P.OP ---
Date of Procedure: 10/13/20 Preoperative Diagnosis: Intrauterine at 35 weeks twin gestation: Family planning: Prior section: Transverse transverse lie Postoperative Diagnosis: Same Procedure(s) Performed: Repeat section with bilateral tubal occlusion with Filshie clips Anesthesia: spinal Surgeon: Lefty Leiva Casing Fluid Tender #1: Carol Downey Estimated Blood Loss (ml): 400 IV fluids (ml): 1,000 Urine output (ml): 500 Pathology: other (Placenta) Condition: stable Disposition: floor Operative Findings: Twin A 6 lbs. 3 oz. scores of 6 and 7 at one and 5 minutes respectively and twin B 5 lbs. 10 oz. scores of 8 and 9 at one and 5 minutes respectfully both babies are stable following delivery. Description of Procedure: Patient was taken to the operating suite where a spinal anesthetic was found be adequate. She was prepped and draped in normal sterile fashion and placed in the dorsal supine position with leftward tilt. Initially a Pfannenstiel skin incision was made and this incision was then carried through to the underlying layer of the fashion with the second knife. Fascia was then nicked in midline and this opening was extended laterally with Negro scissors. Superior and inferior aspect of this incision were then grasped tented up and bluntly and sharply dissected off the rectus muscles. Blunt dissection the peritoneum was then performed. This opening was then extended superiorly and inferiorly with good visualization of both bowel bladder. Bladder blade was then placed in the bladder flap identified. It was entered sharply with Metzenbaums scissors and carried across face the uterus. Was then bluntly dissected out of the operative field. Knife was then used to incise the uterus. It was fully developed with hemostat. She related that the head was supposed to be on the right side for twin A, however head was on the left side it was packed out of was we were able to this with gentle motion suite the legs down into the incision and deliver the baby from breech presentation. Nursery personnel was immediately present to assume care at the umbilical cord was clamped cut usual fashion. Twin B was then palpated through the membranes and was rotated to head down position and falling artificial rupture membranes with clear fluid was delivered from vertex presentation. Again umbilical course clamped cut usual fashion an nursery personnel was present to immediately assume care. Placenta was then delivered intact and Pitocin was added to the IV. Uterus was then exteriorized cleared of clots and debris and closed in 1 layer with 0 Vicryl suture. Once excellent hemostasis was obtained blood and debris was suctioned the posterior cul-de-sac. After verification of the patient and want her tubes tied on physical end s were applied 2 cm from uterine cornu bilaterally. No bleeding is noted in the mesosalpinx therefore uterus is reinserted the abdomen and peritoneal layer was reapproximated with 0 Vicryl suture. Fascial layer was then closed with 0 Vicryl suture. One layer of 3-0 Vicryl was placed in the deep subcuticular tissues reapproximate skin and close space. Skin was then closed with 3-0 Vicryl subcuticularly. Sponge, lap, needle counts were all correct 2. Patient was then taken to the recovery room in stable and satisfactory condition.
[2020-10-13] MEDS: diphenhydrAMINE 50 MG/ML 1 ML VIAL IVP PRN ×2 (12:55→22:36)
[2020-10-13 14:35] LABS: Amphetamine Screen,Urine Not Detected (NotDetected); Barbiturate Screen,Urine Not Detected (NotDetected); Benzodiazepines Screen,Urine Not Detected (NotDetected); Cocaine Screen,Urine Not Detected (NotDetected); Methadone Screen, Urine Not Detected (NotDetected); Opiate Screen,Urine Not Detected (NotDetected); Oxycodone Screen, Urine Not Detected (NotDetected); Phencyclidine Screen,Urine Not Detected (NotDetected); Tricyclic Antidepressant,Urine Not Detected (NotDetected); Urn Cannabinoid Scrn Not Detected (NotDetected)
[2020-10-13] MEDS: ACETAMINOPHEN TAB 500 MG TAB PO SCH ×2 (16:27→22:34)
[2020-10-13] MEDS: LACTATED RINGERS 1,000 ML IV SCH (16:29)
[2020-10-13] MEDS: KETOROLAC 15 MG/ML 1 ML VIAL IVP SCH (17:41)
[2020-10-13] MEDS: SENNOSIDES-DOCUSATE SODIUM 1 EACH TAB PO SCH (20:08)
[2020-10-14] MEDS: KETOROLAC 15 MG/ML 1 ML VIAL IVP SCH ×3 (00:50→12:21)
[2020-10-14] MEDS: ZOLPIDEM 5 MG TAB PO PRN ×2 (04:13→21:49)
[2020-10-14 06:16] LABS: Basophils # (A) 0.1 k/uL (0-0.2); Basophils % (A) 1 %; Eosinophils # (A) 0.2 k/uL (0-0.7); Eosinophils % (A) 2 %; HCT 31.9 % (34.0-46.0); HGB 10.8 gm/dL (11.4-16.0); Lymphocytes % (A) 20 %; MCH 29.7 pg (25.0-35.0); MCHC 33.8 g/dL (31.0-37.0); Mean Platelet Volume 7.9; Monocytes # (A) 0.7 k/uL (0-1.0); Monocytes % (A) 7 %; Neutrophils % (A) 70 %; Platelet Count 257 k/uL (150-450); RBC 3.63 m/uL (3.80-5.40); RDW 13.8 % (11.5-15.5); WBC 10.1 k/uL (3.8-10.6)
[2020-10-14] MEDS: IBUPROFEN 600 MG TAB PO SCH ×3 (07:20→19:29)
[2020-10-14] MEDS: ACETAMINOPHEN TAB 500 MG TAB PO SCH ×4 (07:22→16:27)
[2020-10-14] MEDS: LACTATED RINGERS 1,000 ML IV SCH ×2 (07:24→16:37)
[2020-10-14] MEDS: SENNOSIDES-DOCUSATE SODIUM 1 EACH TAB PO SCH ×2 (10:05→19:29)
--- NOTE | 2020-10-14 10:59 | P.PNOBGPC ---
Subjective - Subjective Principal diagnosis: Postop day 1 Interval history: Overall doing well. She does have some incisional pain but otherwise she feels well. She is able to ambulate and void. Patient reports: Reports appetite normal, Reports voiding normally, Reports pain well controlled, Reports ambulating normally [place]: in NICU Objective - Vital Signs Latest vital signs: Vital Signs Temp Pulse Resp BP Pulse Ox 10/14/20 08:00 98.2 F 88 16 100/64 97 10/14/20 04:00 98.6 F 82 17 122/79 98 10/14/20 00:00 98.8 F 76 16 119/76 99 10/13/20 20:00 99.1 F 79 16 124/76 99 10/13/20 16:00 99.7 F H 82 20 118/57 10/13/20 14:00 97.8 F 85 16 152/76 100 10/13/20 13:30 78 17 144/79 100 10/13/20 13:00 97.0 F L 77 16 132/73 99 10/13/20 12:43 70 17 133/75 98 10/13/20 12:30 77 16 137/75 98 10/13/20 12:17 98.2 F 93 17 161/93 98 10/13/20 12:15 76 17 134/72 98 10/13/20 12:00 97.8 F 83 18 130/71 97 Intake and Output 10/13/20 10/14/20 10/14/20 21:59 06:59 14:59 Intake Total Output Total 500 Balance -500 Intake: IV Output: Urine 500 Other: # Voids 1 - Exam Lungs: bilateral: normal Chest: Normal S1, Normal S2 Extremities: Present: normal Abdomen: Present: normal appearance, soft. Absent: distention, tenderness Incision: Present: normal, dry, intact Uterus: Present: normal, firm - Labs Labs: Abnormal Lab Results - Last 24 Hours (Table) 10/13/20 10/13/20 10/13/20 Range/Units 10:22 10:22 10:22 RBC (3.80-5.40) m/uL Hgb 11.3 L (11.4-16.0) gm/dL Hct (34.0-46.0) % APTT 21.0 L (22.0-30.0) sec Lactate Dehydrogenase 300 L (313-618) U/L Urine Ketones (Negative) Ur Leukocyte Esterase (Negative) Urine WBC (0-5) /hpf Urine Bacteria (None) /hpf Urine Mucus (None) /hpf 10/13/20 10/14/20 Range/Units 10:45 05:31 RBC 3.63 L (3.80-5.40) m/uL Hgb 10.8 L (11.4-16.0) gm/dL Hct 31.9 L (34.0-46.0) % APTT (22.0-30.0) sec Lactate Dehydrogenase (313-618) U/L Urine Ketones Trace H (Negative) Ur Leukocyte Esterase Small H (Negative) Urine WBC 6 H (0-5) /hpf Urine Bacteria Rare H (None) /hpf Urine Mucus Rare H (None) /hpf
[2020-10-14] MEDS: HYDROmorphone 2 MG TAB PO PRN ×2 (15:03→21:49)
[2020-10-15] MEDS: ACETAMINOPHEN TAB 500 MG TAB PO SCH ×2 (05:19→06:27)
[2020-10-15] MEDS: IBUPROFEN 600 MG TAB PO SCH ×4 (06:27→18:57)
--- NOTE | 2020-10-15 06:36 | P.PN ---
Progress Note - Text 10/15 1932 25 yr old s/p csection for twin , she received a spinal with duramorph.patient seen and evaluated for postop pain control, vas of 2, c/o of pruritis which is getting better.doing well.
[2020-10-15] MEDS: SENNOSIDES-DOCUSATE SODIUM 1 EACH TAB PO SCH ×2 (07:34→20:35)
--- NOTE | 2020-10-15 12:27 | P.PNOBGPC ---
Subjective - Subjective Principal diagnosis: S/P RLTCS with TL POD #2 Interval history: Pt seen and examined. As nausea, vomiting, chest pain, shortness of breath or calf pain. Patient reports: Reports appetite normal, Reports voiding normally, Reports pain well controlled, Reports ambulating normally [place]: doing well Objective - Vital Signs Latest vital signs: Vital Signs Temp Pulse Resp BP Pulse Ox 10/15/20 08:00 97.6 F 86 18 138/80 99 10/14/20 23:30 98.6 F 92 16 140/86 99 10/14/20 16:00 98.2 F 78 16 142/81 100 Intake and Output 10/14/20 10/15/20 10/15/20 22:59 06:59 14:59 Other: # Voids 1 - Exam Lungs: bilateral: normal Chest: Normal S1, Normal S2 Extremities: Present: normal Abdomen: Present: normal appearance, soft. Absent: distention, tenderness Incision: Present: normal, dry, intact Uterus: Present: normal, firm Assessment and Plan (1) Status post repeat low transverse section Current Visit: Yes Status: Acute Code(s): Z98.891 - HISTORY OF UTERINE SCAR FROM PREVIOUS SURGERY SNOMED Code(s): 134381845 Plan: 1. Increase ambulation 2. By mouth pain medication 3. Regular diet
[2020-10-15] MEDS: HYDROcodone/APAP 7.5-325MG 1 EACH TAB PO PRN ×2 (16:22→21:47)
[2020-10-15] MEDS: ZOLPIDEM 5 MG TAB PO PRN (21:47)
[2020-10-15 23:13] VITALS: RESP 16
[2020-10-16] MEDS: IBUPROFEN 600 MG TAB PO SCH ×2 (01:00→09:33)
[2020-10-16] MEDS: HYDROcodone/APAP 7.5-325MG 1 EACH TAB PO PRN ×2 (07:37→13:01)
[2020-10-16] MEDS: SENNOSIDES-DOCUSATE SODIUM 1 EACH TAB PO SCH (07:38)
--- NOTE | 2020-10-16 08:21 | P.DS ---
Providers Date of admission: 10/13/20 09:41 Expected date of discharge: 10/16/20 Attending physician: Casandra Maldonado Primary care physician: Stated None - Discharge Diagnosis(es) (1) Status post repeat low transverse section Current Visit: Yes Status: Acute Hospital Course: Patient presented with spontaneous rupture membranes. She underwent a repeat low transverse for twin gestation and a tubal ligation. Postoperative course was uncomplicated. She is and bleeding voiding without difficulty, passing flatus and tolerating regular diet. She'll be discharged home postoperative day #3 in stable condition to follow-up with me in one week. Plan - Discharge Summary New Discharge Prescriptions: New Ibuprofen [Motrin] 600 mg PO Q6H #30 tab HYDROcodone/APAP 7.5-325MG [[place] 7.5-325] 1 each PO Q6H PRN #12 tab PRN Reason: Pain No Action Pnv No.95/Ferrous Fum/Folic AC [ Multivitamin Tablet] 1 each PO DAILY #30 tablet Aspirin 81 mg PO DAILY Discharge Medication List Pnv No.95/Ferrous Fum/Folic AC [ Multivitamin Tablet] 1 each PO DAILY #30 tablet 03/25/20 [Rx] Aspirin 81 mg PO DAILY 10/13/20 [History] HYDROcodone/APAP 7.5-325MG [[place] 7.5-325] 1 each PO Q6H PRN #12 tab 10/16/20 [Rx] Ibuprofen [Motrin] 600 mg PO Q6H #30 tab 10/16/20 [Rx] Follow up Appointment(s)/Referral(s): Casandra Maldonado DO [Doctor of Osteopathic Medicine] - 1 Week Discharge Disposition: HOME SELF-CARE
[2020-10-16 08:26] VITALS: BP 132/85; PULSE 94; TEMP 97.8
== END 2020-10-16 14:00 | disposition home or self-care (01) | DRG 785 ==
LOC: 4FBP 09:41
PROVIDERS: ADMIT Obstetrics & Gynecology; ATTEND Obstetrics & Gynecology
PROC: 3E0134Z Introduction of Serum, Toxoid and Vaccine into Subcutaneous Tissue, Percutaneous Approach (ICD-10-PCS; 2020-10-13)
PROC: 0UL70CZ Occlusion of Bilateral Fallopian Tubes with Extraluminal Device, Open Approach (ICD-10-PCS; principal; 2020-10-13 11:00)
PROC: 10D00Z1 Extraction of Products of Conception, Low, Open Approach (ICD-10-PCS; principal; 2020-10-13 11:00)
DX: O34.211 Maternal care for low transverse scar from previous cesarean delivery (principal); Z37.2 Twins, both liveborn; E66.01 Morbid (severe) obesity due to excess calories; F31.9 Bipolar disorder, unspecified; F60.3 Borderline personality disorder; O75.82 Onset (spontaneous) of labor after 37 completed weeks of gestation but before 39 completed weeks gestation, with delivery by (planned) cesarean section; O32.1XX1 Maternal care for breech presentation, fetus 1; O30.043 Twin pregnancy, dichorionic/diamniotic, third trimester; O99.214 Obesity complicating childbirth; N85.8 Other specified noninflammatory disorders of uterus; O99.344 Other mental disorders complicating childbirth; K21.9 Gastro-esophageal reflux disease without esophagitis; Z3A.35 35 weeks gestation of pregnancy; Z23 Encounter for immunization; Z30.2 Encounter for sterilization; Z79.82 Long term (current) use of aspirin; Z79.899 Other long term (current) drug therapy; Z86.19 Personal history of other infectious and parasitic diseases; Z86.14 Personal history of Methicillin resistant Staphylococcus aureus infection; Z86.79 Personal history of other diseases of the circulatory system; Z90.49 Acquired absence of other specified parts of digestive tract; Z87.19 Personal history of other diseases of the digestive system; Z98.890 Other specified postprocedural states
CPT/HCPCS: 80306; 81001; 82570; 83615; 84156; 84450; 84460; 84550; 85025; 85610; 85730; 86850; 86900; 86901; 88307

== ENCOUNTER 2021-06-16 09:09 | Emergency (ER) | payer OTHER ==
[2021-06-16 09:30] VITALS: BP 162/105; PULSE 107; RESP 18; TEMP 98.3
[2021-06-16] MEDS ORDERED: SODIUM CHLORIDE 0.9% 2,000 ML IV STA (09:31)
[2021-06-16] MEDS ORDERED: ONDANSETRON 4 MG/2 ML VIAL IVP STA (09:31)
[2021-06-16] MEDS ORDERED: KETOROLAC 15 MG/ML 1 ML VIAL IVP STA (09:39)
[2021-06-16] MEDS ORDERED: diphenhydrAMINE 50 MG/ML 1 ML VIAL IVP STA (09:39)
--- NOTE | 2021-06-16 09:43 | ED ---
General Adult HPI - General Chief complaint: Nausea/Vomiting/Diarrhea Stated complaint: Nausea/Vomiting Time Seen by Provider: 06/16/21 09:31 Source: patient, RN notes reviewed Mode of arrival: ambulatory Limitations: no limitations - History of Present Illness Initial comments: This a 25-year-old female presents emergency Department with chief complaint of nausea vomiting bodyaches cough congestion patient's been sick for last 3-4 days. Patient states she's had subjective fevers and chills no mental abdominal pain states she's very nauseated complaint of headache no neck pain or neck stiffness patient denies any chance no dysuria no hematuria. - Related Data Previous Rx's Medication Instructions Recorded Ondansetron Odt [Zofran Odt] 4 mg PO Q8HR PRN #10 tab 06/16/21 Allergies Allergy/AdvReac Type Severity Reaction Status Date / Time No Known Allergies Allergy Verified 06/16/21 10:34 Review of Systems ROS Statement: Those systems with pertinent positive or pertinent negative responses have been documented in the HPI. ROS Other: All systems not noted in ROS Statement are negative. Past Medical History Past Medical History: GERD/Reflux Additional Past Medical History / Comment(s): HEART MURMUR CHILD. Obstetric history: She has had 1 previous vagina delivery and one . (first baby was given up for adoption). This is her third . She's had care with me since the first trimester and is with di/di twins. She is being followed by [facility] as well. Blood type is A+. History of Any Multi-Drug Resistant Organisms: MRSA Date of last positivie culture/infection: 2008 MDRO Source:: axilla Past Surgical History: Section, Cholecystectomy Past Anesthesia/Blood Transfusion Reactions: No Reported Reaction Past Psychological History: Bipolar Smoking Status: Never smoker Past Alcohol Use History: None Reported Past Drug Use History: Marijuana - Past Family History Mother Family Medical History: No Reported History General Exam Limitations: no limitations General appearance: alert, in no apparent distress Head exam: Present: atraumatic, normocephalic, normal inspection Eye exam: Present: normal appearance, PERRL, EOMI. Absent: scleral icterus, conjunctival injection, periorbital swelling ENT exam: Present: normal exam, normal oropharynx, mucous membranes moist Neck exam: Present: normal inspection, full ROM. Absent: tenderness, meningismus, lymphadenopathy Respiratory exam: Present: normal lung sounds bilaterally. Absent: respiratory distress, wheezes, rales, rhonchi, stridor Cardiovascular Exam: Present: normal rhythm, tachycardia, normal heart sounds. Absent: systolic murmur, diastolic murmur, rubs, gallop, clicks GI/Abdominal exam: Present: soft, normal bowel sounds. Absent: distended, tenderness, guarding, rebound, rigid Course Vital Signs 06/16/21 09:28 Temperature 98.3 F Pulse Rate 107 H Respiratory 18 Rate Blood Pressure 162/105 O2 Sat by Pulse 98 Oximetry Medical Decision Making - Medical Decision Making Patient is positive or COVID-19. She was hydrated, given antiemetics feels improved patient did receive monoclonal antibodies will be discharged in stable condition. - Lab Data Result diagrams: 06/16/21 10:06 06/16/21 10:06 Lab Results 06/16/21 06/16/21 06/16/21 Range/Units 10:06 10:06 10:06 WBC 7.1 (3.8-10.6) k/uL RBC 5.51 H (3.80-5.40) m/uL Hgb 16.0 (11.4-16.0) gm/dL Hct 47.4 H (34.0-46.0) % MCV 86.0 (80.0-100.0) fL MCH 29.1 (25.0-35.0) pg MCHC 33.8 (31.0-37.0) g/dL RDW 14.4 (11.5-15.5) % Plt Count 265 (150-450) k/uL MPV 7.6 Neutrophils % 68 % Lymphocytes % 16 % Monocytes % 12 % Eosinophils % 1 % Basophils % 0 % Neutrophils # 4.9 (1.3-7.7) k/uL Lymphocytes # 1.2 (1.0-4.8) k/uL Monocytes # 0.9 (0-1.0) k/uL Eosinophils # 0.0 (0-0.7) k/uL Basophils # 0.0 (0-0.2) k/uL Sodium 138 (137-145) mmol/L Potassium 4.0 (3.5-5.1) mmol/L Chloride 105 (98-107) mmol/L Carbon Dioxide 21 L (22-30) mmol/L Anion Gap 12 mmol/L BUN 13 (7-17) mg/dL Creatinine 0.74 (0.52-1.04) mg/dL Est GFR (CKD-EPI)AfAm >90 (>60 ml/min/1.73 sqM) Est GFR (CKD-EPI)NonAf >90 (>60 ml/min/1.73 sqM) Glucose 97 (74-99) mg/dL Plasma Lactic Acid [place] (0.7-2.0) mmol/L Calcium 9.5 (8.4-10.2) mg/dL Total Bilirubin 0.3 (0.2-1.3) mg/dL AST 36 (14-36) U/L ALT 40 H (4-34) U/L Alkaline Phosphatase 92 (38-126) U/L Total Protein 7.4 (6.3-8.2) g/dL Albumin 4.4 (3.5-5.0) g/dL Lipase 67 (23-300) U/L Urine Color Yellow Urine Appearance Cloudy H (Clear) Urine pH 6.0 (5.0-8.0) Ur Specific [place] 1.029 (1.001-1.035) Urine Protein 1+ H (Negative) Urine Glucose (UA) Negative (Negative) Urine Ketones 1+ H (Negative) Urine Blood Negative (Negative) Urine Nitrite Negative (Negative) Urine Bilirubin Negative (Negative) Urine Urobilinogen 2.0 (<2.0) mg/dL Ur Leukocyte Esterase Small H (Negative) Urine RBC 4 (0-5) /hpf Urine WBC 21 H (0-5) /hpf Ur Squamous Epith Cells 21 H (0-4) /hpf Urine Bacteria Many H (None) /hpf Urine Mucus Many H (None) /hpf Urine HCG, Qual (Not Detectd) Coronavirus (PCR) (Not Detectd) 06/16/21 06/16/21 06/16/21 Range/Units 10:06 10:06 10:06 WBC (3.8-10.6) k/uL RBC (3.80-5.40) m/uL Hgb (11.4-16.0) gm/dL Hct (34.0-46.0) % MCV (80.0-100.0) fL MCH (25.0-35.0) pg MCHC (31.0-37.0) g/dL RDW (11.5-15.5) % Plt Count (150-450) k/uL MPV Neutrophils % % Lymphocytes % % Monocytes % % Eosinophils % % Basophils % % Neutrophils # (1.3-7.7) k/uL Lymphocytes # (1.0-4.8) k/uL Monocytes # (0-1.0) k/uL Eosinophils # (0-0.7) k/uL Basophils # (0-0.2) k/uL Sodium (137-145) mmol/L Potassium (3.5-5.1) mmol/L Chloride (98-107) mmol/L Carbon Dioxide (22-30) mmol/L Anion Gap mmol/L BUN (7-17) mg/dL Creatinine (0.52-1.04) mg/dL Est GFR (CKD-EPI)AfAm (>60 ml/min/1.73 sqM) Est GFR (CKD-EPI)NonAf (>60 ml/min/1.73 sqM) Glucose (74-99) mg/dL Plasma Lactic Acid [place] 0.9 (0.7-2.0) mmol/L Calcium (8.4-10.2) mg/dL Total Bilirubin (0.2-1.3) mg/dL AST (14-36) U/L ALT (4-34) U/L Alkaline Phosphatase (38-126) U/L Total Protein (6.3-8.2) g/dL Albumin (3.5-5.0) g/dL Lipase (23-300) U/L Urine Color Urine Appearance (Clear) Urine pH (5.0-8.0) Ur Specific [place] (1.001-1.035) Urine Protein (Negative) Urine Glucose (UA) (Negative) Urine Ketones (Negative) Urine Blood (Negative) Urine Nitrite (Negative) Urine Bilirubin (Negative) Urine Urobilinogen (<2.0) mg/dL Ur Leukocyte Esterase (Negative) Urine RBC (0-5) /hpf Urine WBC (0-5) /hpf Ur Squamous Epith Cells (0-4) /hpf Urine Bacteria (None) /hpf Urine Mucus (None) /hpf Urine HCG, Qual Not Detected (Not Detectd) Coronavirus (PCR) Detected A (Not Detectd) Disposition Clinical Impression: COVID-19, Vomiting Disposition: HOME SELF-CARE Condition: Stable Instructions (If sedation given, give patient instructions): Coronavirus Disease 2019 (COVID-19) Additional Instructions: Please return to the Emergency Department if symptoms worsen or any other concerns. Prescriptions: Ondansetron Odt [Zofran Odt] 4 mg PO Q8HR PRN #10 tab PRN Reason: Nausea Is patient prescribed a controlled substance at d/c from ED?: No Referrals: Jo-Ann Mortensen MD [Primary Care Provider] - 1-2 days Time of Disposition: 11:02
[2021-06-16 10:34] LABS: ALT 40 U/L (4-34); AST 36 U/L (14-36); African American GFR (CKD) >90 (>60 ml/min/1.73 sqM); Albumin 4.4 g/dL (3.5-5.0); Alkaline Phosphatase 92 U/L (38-126); Anion Gap 12 mmol/L; Blood Urea Nitrogen 13 mg/dL (7-17); Calcium 9.5 mg/dL (8.4-10.2); Carbon Dioxide 21 mmol/L (22-30); Chloride 105 mmol/L (98-107); Glucose 97 mg/dL (74-99); Lipase 67 U/L (23-300); Non-African American GFR(CKD) >90 (>60 ml/min/1.73 sqM); Sodium 138 mmol/L (137-145); Total Bilirubin 0.3 mg/dL (0.2-1.3); Total Protein 7.4 g/dL (6.3-8.2)
[2021-06-16 10:42] LABS: Appearance,Urine Cloudy (Clear); Bacteria,Urine Many /hpf; Bilirubin,Urine Negative (Negative); Blood,Urine Negative (Negative); Color,Urine Yellow; Glucose,Urine (UA) Negative (Negative); Ketones,Urine 1+ (Negative); Leukocyte Esterase,Urine Small (Negative); Mucus,Urine Many /hpf; Nitrite,Urine Negative (Negative); Protein,Urine 1+ (Negative); RBC,Urine 4 /hpf (0-5); Specific Gravity,Urine 1.029 (1.001-1.035); Squamous Epithelial Cell,Urine 21 /hpf (0-4); WBC,Urine 21 /hpf (0-5)
[2021-06-16 10:51] LABS: Basophils % (A) 0 %; Eosinophils % (A) 1 %; HCT 47.4 % (34.0-46.0); Lymphocytes # (A) 1.2 k/uL (1.0-4.8); Lymphocytes % (A) 16 %; MCH 29.1 pg (25.0-35.0); MCHC 33.8 g/dL (31.0-37.0); Mean Platelet Volume 7.6; Monocytes # (A) 0.9 k/uL (0-1.0); Monocytes % (A) 12 %; Neutrophils # (A) 4.9 k/uL (1.3-7.7); Neutrophils % (A) 68 %; Platelet Count 265 k/uL (150-450); RBC 5.51 m/uL (3.80-5.40); RDW 14.4 % (11.5-15.5); WBC 7.1 k/uL (3.8-10.6)
[2021-06-16] MEDS ORDERED: CASIRIVIMAB/IMDEVIMAB (EUA) 1,200 MG in SODIUM CHLORIDE 0.9% 100 ML IVPB ONE (11:45)
[2021-06-16] MEDS ORDERED: SODIUM CHLORIDE 0.9% 50 ML IVPB ONE (12:15)
== END 2021-06-16 15:20 | disposition home or self-care (01) ==
LOC: EC 09:09
DX: U07.1 COVID-19 (principal); K21.9 Gastro-esophageal reflux disease without esophagitis; F12.90 Cannabis use, unspecified, uncomplicated
CPT/HCPCS: 99284 ×2; 96375 ×4; 36415; 80053; 83605; 83690; 85025; 81001; 81025; 87086; 87077; 87186; 87635; M0243; J1200; J2405; J1885; Q0243; 96374